=== PATIENT | female | born 1945 | race Caucasian/White ===

== ENCOUNTER 2018-06-13 14:43 | Inpatient (IN) | payer MEDICARE, BC ==
[~2018-06-13] VITALS: Ht 170.2 cm; Wt 46.7 kg
[2018-06-13] MEDS ORDERED: normal saline 1000ML IV soln IVB ONE ×2 (16:30→19:05)
[2018-06-13 17:34] LABS: BASOPHILS # (AUTO) 0.1 X10'3 (0-0.2); BASOPHILS % (AUTO) 0.6 % (0-1); EOSINOPHILS # (AUTO) 0.1 X10'3 (0-0.9); EOSINOPHILS % (AUTO) 1.2 % (0-6); HEMATOCRIT 36.7 % (35.0-45.0); HEMOGLOBIN 12.7 g/dl (12.0-16.0); LYMPHOCYTES # (AUTO) 0.9 X10'3 (1.1-4.8); LYMPHOCYTES % (AUTO) 7.7 % (21-51); MEAN CORPUSCULAR HEMOGLOBIN 34.7 PG (27.0-31.0); MEAN CORPUSCULAR HGB CONC 34.6 % (33.0-36.5); MEAN CORPUSCULAR VOLUME 100.2 FL (78-98); MEAN PLATELET VOLUME 8.9 FL (7.4-10.4); MONOCYTES # (AUTO) 0.9 X10'3 (0-0.9); NEUTROPHILS # (AUTO) 9.6 X10'3 (1.8-7.7); NEUTROPHILS % (AUTO) 82.5 % (42-75); PLATELET COUNT 191 X10'3 (140-440); RED BLOOD COUNT 3.66 X10'6 (4.20-5.60); RED CELL DISTRIBUTION WIDTH 14.4 % (11.5-14.5); WHITE BLOOD COUNT 11.6 X10'3 (4.5-11.0)
[2018-06-13 17:54] LABS: ALANINE AMINOTRANSFERASE 27 U/L (12-78); ALBUMIN 2.5 G/DL (3.4-5.0); ALBUMIN/GLOBULIN RATIO 0.7 (1.1-1.5); ALKALINE PHOSPHATASE 92 IU/L (46-116); ANION GAP 16 (8-16); ASPARTATE AMINO TRANSFERASE 24 U/L (10-37); BILIRUBIN,TOTAL 0.5 MG/DL (0.1-1.0); BLOOD UREA NITROGEN 60 MG/DL (7-18); BUN/CREATININE RATIO 25.9 (6.6-38.0); CALCIUM 8.6 MG/DL (8.5-10.1); CHLORIDE 106 MMOL/L (99-107); CREATININE 2.32 MG/DL (0.40-0.90); GLUCOSE 134 MG/DL (70-104); SODIUM 140 MMOL/L (135-145); TOTAL CARBON DIOXIDE 18.3 MMOL/L (24-32); TOTAL PROTEIN 6.3 G/DL (6.4-8.2); eGFR 21 ML/MIN
[2018-06-13 17:56] LABS: POTASSIUM 2.1 MMOL/L (3.5-5.1)
[2018-06-13] MEDS ORDERED: potass W/LIDOcaine 10mEq/100ml 100 ML IV ONE ×2 (18:00)
[2018-06-13] MEDS: potass W/LIDOcaine 10mEq/100ml 100 ML IV SCH ×3 (18:12→20:23)
[2018-06-13] MEDS ORDERED: NO HOME MEDS (18:17)
[2018-06-13 18:23] LABS: PLATELET ESTIMATE NORMAL; TOTAL CELLS COUNTED 100
[2018-06-13] MEDS: normal saline 1000ml 1,000 ML IV SCH (19:44)
[2018-06-13] MEDS ORDERED: magnesium 4gm in 100ml NS 100 ML IV PRN (19:45)
[2018-06-13] MEDS ORDERED: HYDROcodone/acetaminophen 5mg/325mg tablet PO PRN (19:45)
[2018-06-13] MEDS ORDERED: mag hydrox/Alum hydrox/simeth 30ml oral suspension PO PRN (19:45)
[2018-06-13] MEDS ORDERED: acetaminophen 650mg rectal suppository RC PRN (19:45)
[2018-06-13] MEDS ORDERED: ondansetron/PF 4mg/2ml inj IV PRN (19:45)
[2018-06-13] MEDS ORDERED: magnesium 1gm/100ml D5W IVPB 100 ML IV PRN (19:45)
[2018-06-13] MEDS ORDERED: potassium Cl 40MEQ/NS 500ml 500 ML IV PRN ×2 (19:45)
[2018-06-13] MEDS ORDERED: diphenhydrAMINE 50 mg/ml inj IV PRN (19:45)
[2018-06-13] MEDS ORDERED: metoclopramide 5 mg/ml inj IV PRN (19:45)
[2018-06-13] MEDS ORDERED: morphine 2 MG/ML inj. syringe IV PRN ×2 (19:45)
[2018-06-13] MEDS ORDERED: magnesium hydroxide 30ml (MOM) UD suspension PO PRN (19:45)
[2018-06-13] MEDS ORDERED: acetaminophen 325mg tablet PO PRN ×2 (19:45)
[2018-06-13] MEDS ORDERED: bisacodyl 10mg suppository rectal RC PRN (19:45)
[2018-06-13] MEDS ORDERED: normal saline 500ml IV soln 500 ML IV ONE (19:50)
[2018-06-13] MEDS: docusate sod 100mg capsule PO SCH ×2 (20:00→20:18)
[2018-06-13] MEDS: hydrocortisone sod succ/PF 100mg/2ml inj. IV SCH (20:19)
[2018-06-13] MEDS: heparin, porcine 5000 units/ml vial SQ SCH (20:19)
[2018-06-13 20:45] LABS: HEMOGLOBIN A1C 5.3 % (4.5-6.2)
[2018-06-13 20:51] LABS: MAGNESIUM 2.1 MG/DL (1.5-2.4); PHOSPHORUS 3.5 MG/DL (2.3-4.5)
[2018-06-13] MEDS ORDERED: temazepam 15mg capsule PO PRN (21:00)
[2018-06-13] MEDS: potassium Cl 20 mEq SR tablet PO PRN (21:16)
[2018-06-14] MEDS ORDERED: tetanus & diphtheria toxoid (Td) vaccine 0.5ml IMVAC ONE (03:40)
[2018-06-14] MEDS ORDERED: TETanus/Pertussis (Acell)/Diphther VAC/PF (Tdap-Adult) 0.5ml syringe IMVAC ONE (04:00)
[2018-06-14] MEDS: normal saline 1000ml 1,000 ML IV SCH (06:57)
[2018-06-14 07:09] LABS: BASOPHILS % (AUTO) 0 % (0-1); EOSINOPHILS % (AUTO) 0.1 % (0-6); HEMATOCRIT 35.6 % (35.0-45.0); LYMPHOCYTES % (AUTO) 10.4 % (21-51); MEAN CORPUSCULAR HGB CONC 33.8 % (33.0-36.5); MEAN CORPUSCULAR VOLUME 103.3 FL (78-98); MEAN PLATELET VOLUME 9.1 FL (7.4-10.4); MONOCYTES # (AUTO) 0.5 X10'3 (0-0.9); MONOCYTES % (AUTO) 4.7 % (2-12); NEUTROPHILS # (AUTO) 8.5 X10'3 (1.8-7.7); NEUTROPHILS % (AUTO) 84.8 % (42-75); PLATELET COUNT 180 X10'3 (140-440); RED BLOOD COUNT 3.44 X10'6 (4.20-5.60); RED CELL DISTRIBUTION WIDTH 15.3 % (11.5-14.5); WHITE BLOOD COUNT 10.1 X10'3 (4.5-11.0)
[2018-06-14 07:19] LABS: CLARITY,URINE SLIGHTLY CLOUDY (Clear); COLOR,URINE YELLOW (Yellow); GLUCOSE, URINE NEGATIVE (Neg); KETONES,URINE NEGATIVE (Neg); LEUKOCYTE ESTERASE ,URINE LARGE (Neg); NITRITES, URINE NEGATIVE (Neg); OCCULT BLOOD,URINE LARGE (Neg); PROTEIN,URINE TRACE mg/dl (Neg); UROBILINOGEN,URINE 0.2 E.U/dL (0.2-1.0)
[2018-06-14 07:38] LABS: UA COLLECTION TYPE VOIDED
[2018-06-14 07:38] LABS: ALANINE AMINOTRANSFERASE 27 U/L (12-78); ALBUMIN/GLOBULIN RATIO 0.6 (1.1-1.5); ALKALINE PHOSPHATASE 78 IU/L (46-116); ANION GAP 13 (8-16); ASPARTATE AMINO TRANSFERASE 38 U/L (10-37); BILIRUBIN,TOTAL 0.4 MG/DL (0.1-1.0); BLOOD UREA NITROGEN 48 MG/DL (7-18); BUN/CREATININE RATIO 26.1 (6.6-38.0); CALCIUM 7.3 MG/DL (8.5-10.1); CHLORIDE 116 MMOL/L (99-107); CHOL/HDL RATIO 2.4 (0.00-4.99); CHOLESTEROL 92 MG/DL (0-200); CREATININE 1.84 MG/DL (0.40-0.90); GLUCOSE 96 MG/DL (70-104); HDL CHOLESTEROL 38 MG/DL (35-60); LDL CHOLESTEROL 39 MG/DL (50-100); MAGNESIUM 1.9 MG/DL (1.5-2.4); SODIUM 146 MMOL/L (135-145); TOTAL PROTEIN 5.3 G/DL (6.4-8.2); TRIGLYCERIDES 81 MG/DL (20-135); eGFR 27 ML/MIN
[2018-06-14 07:40] LABS: BACTERIA,URINE FEW /HPF (Neg); FINE GRANULAR CAST 0-3 /LPF (NEGATIVE); MUCUS STRANDS NONE SEEN /LPF (Neg); RBC,URINE NONE SEEN /HPF (0-2); RENAL CELLS, URINE FEW /HPF; SQUAMOUS EPITHELIAL CELL,UR MODERATE /LPF (FEW)
[2018-06-14] MEDS: hydrocortisone sod succ/PF 100mg/2ml inj. IV SCH (07:59)
[2018-06-14] MEDS: pantoprazole 40mg Tablet.DR PO SCH (07:59)
[2018-06-14] MEDS: heparin, porcine 5000 units/ml vial SQ SCH ×2 (07:59→20:40)
[2018-06-14] MEDS: K and/or MAG REPLACEMENT MC SCH (08:00)
[2018-06-14] MEDS: docusate sod 100mg capsule PO SCH ×2 (08:00→20:00)
[2018-06-14 08:04] LABS: POTASSIUM 2.5 MMOL/L (3.5-5.1)
[2018-06-14] MEDS: potassium Cl 20 mEq SR tablet PO PRN ×4 (08:09→22:45)
[2018-06-14 09:15] LABS: TOTAL CELLS COUNTED 100
[2018-06-14 09:23] LABS: ANISOCYTOSIS FEW; PLATELET ESTIMATE NORMAL
[2018-06-14 09:24] LABS: TOXIC GRANULATION 1+
[2018-06-14 10:00] VITALS: BP 110/63
[2018-06-14] MEDS: levoFLOXACIN-Levaquin 500mg/D5 100 ML IV SCH (11:20)
[2018-06-14] MEDS: clindamycin 300mg/D5W 50mL 50 ML IV SCH ×2 (14:01→20:38)
[2018-06-14 17:00] VITALS: BP_SYST 100; BP_SYST 76; BP_SYST 90; BP_DIAS 44; BP_DIAS 46
[2018-06-14 18:00] VITALS: BP 105/45
[2018-06-14 20:00] VITALS: BP_SYST 102; BP_DIAS 51; BP_DIAS 63; BP_DIAS 68
[2018-06-14] MEDS: sodium bicarbonate (8.4%) inj. 100 MEQ in dextrose 5%-water 1,000 ML IV SCH (21:47)
[2018-06-14 22:00] VITALS: BP 102/51
[2018-06-15] MEDS: clindamycin 300mg/D5W 50mL 50 ML IV SCH ×4 (01:54→21:25)
[2018-06-15] MEDS: potassium Cl 20 mEq SR tablet PO PRN ×4 (02:51→18:54)
[2018-06-15 06:00] VITALS: BP 97/54
[2018-06-15] MEDS: pantoprazole 40mg Tablet.DR PO SCH (07:33)
[2018-06-15] MEDS: heparin, porcine 5000 units/ml vial SQ SCH ×2 (07:34→21:25)
[2018-06-15] MEDS: hydrocortisone sod succ/PF 100mg/2ml inj. IV SCH (07:34)
[2018-06-15 08:00] VITALS: BP_SYST 93; BP_SYST 95; BP_SYST 99; BP_DIAS 52; BP_DIAS 55; BP_DIAS 60
[2018-06-15] MEDS: docusate sod 100mg capsule PO SCH ×2 (08:00→20:00)
[2018-06-15] MEDS: K and/or MAG REPLACEMENT MC SCH (08:00)
[2018-06-15] MEDS: levoFLOXACIN-Levaquin 500mg/D5 100 ML IV SCH (08:39)
[2018-06-15 09:13] LABS: BASOPHILS % (AUTO) 0.2 % (0-1); EOSINOPHILS # (AUTO) 0.2 X10'3 (0-0.9); EOSINOPHILS % (AUTO) 1.8 % (0-6); HEMATOCRIT 33.2 % (35.0-45.0); HEMOGLOBIN 11.3 g/dl (12.0-16.0); LYMPHOCYTES # (AUTO) 1.3 X10'3 (1.1-4.8); LYMPHOCYTES % (AUTO) 14.4 % (21-51); MEAN CORPUSCULAR HEMOGLOBIN 34.9 PG (27.0-31.0); MEAN CORPUSCULAR HGB CONC 33.9 % (33.0-36.5); MEAN CORPUSCULAR VOLUME 102.9 FL (78-98); MEAN PLATELET VOLUME 9.1 FL (7.4-10.4); MONOCYTES # (AUTO) 0.5 X10'3 (0-0.9); MONOCYTES % (AUTO) 6.1 % (2-12); NEUTROPHILS # (AUTO) 6.9 X10'3 (1.8-7.7); NEUTROPHILS % (AUTO) 77.5 % (42-75); PLATELET COUNT 170 X10'3 (140-440); RED BLOOD COUNT 3.22 X10'6 (4.20-5.60); RED CELL DISTRIBUTION WIDTH 14.7 % (11.5-14.5); WHITE BLOOD COUNT 8.9 X10'3 (4.5-11.0)
[2018-06-15 09:31] LABS: ALANINE AMINOTRANSFERASE 25 U/L (12-78); ALBUMIN 1.8 G/DL (3.4-5.0); ALBUMIN/GLOBULIN RATIO 0.6 (1.1-1.5); ALKALINE PHOSPHATASE 81 IU/L (46-116); ANION GAP 13 (8-16); ASPARTATE AMINO TRANSFERASE 43 U/L (10-37); BILIRUBIN,TOTAL 0.4 MG/DL (0.1-1.0); BLOOD UREA NITROGEN 32 MG/DL (7-18); BUN/CREATININE RATIO 24.2 (6.6-38.0); CALCIUM 7.2 MG/DL (8.5-10.1); CHLORIDE 114 MMOL/L (99-107); CREATININE 1.32 MG/DL (0.40-0.90); GLUCOSE 168 MG/DL (70-104); MAGNESIUM 1.3 MG/DL (1.5-2.4); POTASSIUM 3.3 MMOL/L (3.5-5.1); SODIUM 144 MMOL/L (135-145); TOTAL CARBON DIOXIDE 17.4 MMOL/L (24-32); eGFR 40 ML/MIN
[2018-06-15 10:00] VITALS: BP 99/52
[2018-06-15] MEDS: sodium bicarbonate (8.4%) inj. 100 MEQ in dextrose 5%-water 1,000 ML IV SCH (13:32)
[2018-06-15] MEDS: magnesium Cl slow-release 64mg tablet PO PRN ×2 (14:02→22:35)
[2018-06-15 18:00] VITALS: BP 100/60
[2018-06-15 20:00] VITALS: BP_SYST 111; BP_SYST 113; BP_DIAS 61; BP_DIAS 65
[2018-06-15 22:00] VITALS: BP 94/58
[2018-06-16] MEDS: HYDROcodone/acetaminophen 10/325mg tab PO PRN (02:12)
[2018-06-16] MEDS: clindamycin 300mg/D5W 50mL 50 ML IV SCH ×4 (04:13→20:10)
[2018-06-16] MEDS: sodium bicarbonate (8.4%) inj. 100 MEQ in dextrose 5%-water 1,000 ML IV SCH ×3 (04:14→18:00)
[2018-06-16] MEDS: diphenhydrAMINE 25mg capsule PO PRN ×2 (04:20→20:22)
[2018-06-16 06:00] VITALS: BP 104/63
[2018-06-16 06:59] LABS: BASOPHILS # (AUTO) 0.2 X10'3 (0-0.2); BASOPHILS % (AUTO) 1.7 % (0-1); EOSINOPHILS # (AUTO) 0.1 X10'3 (0-0.9); EOSINOPHILS % (AUTO) 0.8 % (0-6); HEMATOCRIT 32.4 % (35.0-45.0); LYMPHOCYTES # (AUTO) 1.9 X10'3 (1.1-4.8); LYMPHOCYTES % (AUTO) 18.2 % (21-51); MEAN CORPUSCULAR HEMOGLOBIN 34.7 PG (27.0-31.0); MEAN CORPUSCULAR HGB CONC 33.8 % (33.0-36.5); MEAN CORPUSCULAR VOLUME 102.6 FL (78-98); MEAN PLATELET VOLUME 9.1 FL (7.4-10.4); MONOCYTES # (AUTO) 0.8 X10'3 (0-0.9); MONOCYTES % (AUTO) 7.5 % (2-12); NEUTROPHILS # (AUTO) 7.6 X10'3 (1.8-7.7); NEUTROPHILS % (AUTO) 71.8 % (42-75); PLATELET COUNT 167 X10'3 (140-440); RED BLOOD COUNT 3.16 X10'6 (4.20-5.60); RED CELL DISTRIBUTION WIDTH 14.7 % (11.5-14.5); WHITE BLOOD COUNT 10.6 X10'3 (4.5-11.0)
[2018-06-16 07:24] LABS: ALANINE AMINOTRANSFERASE 24 U/L (12-78); ALBUMIN 1.7 G/DL (3.4-5.0); ALBUMIN/GLOBULIN RATIO 0.5 (1.1-1.5); ALKALINE PHOSPHATASE 69 IU/L (46-116); ANION GAP 8 (8-16); ASPARTATE AMINO TRANSFERASE 33 U/L (10-37); BILIRUBIN,TOTAL 0.3 MG/DL (0.1-1.0); BLOOD UREA NITROGEN 22 MG/DL (7-18); BUN/CREATININE RATIO 20.4 (6.6-38.0); CALCIUM 7.4 MG/DL (8.5-10.1); CHLORIDE 113 MMOL/L (99-107); CREATININE 1.08 MG/DL (0.40-0.90); GLUCOSE 81 MG/DL (70-104); MAGNESIUM 1.4 MG/DL (1.5-2.4); POTASSIUM 3.1 MMOL/L (3.5-5.1); SODIUM 144 MMOL/L (135-145); TOTAL CARBON DIOXIDE 22.6 MMOL/L (24-32); eGFR 50 ML/MIN
[2018-06-16] MEDS: hydrocortisone sod succ/PF 100mg/2ml inj. IV SCH (07:39)
[2018-06-16] MEDS: lactobacillus rhamnosus 10,000 MMU CELLS/CAPSULE PO SCH ×2 (07:39→20:10)
[2018-06-16] MEDS: pantoprazole 40mg Tablet.DR PO SCH (07:39)
[2018-06-16] MEDS: magnesium Cl slow-release 64mg tablet PO PRN (07:39)
[2018-06-16] MEDS: potassium Cl 20 mEq SR tablet PO PRN ×3 (07:39→21:34)
[2018-06-16] MEDS: heparin, porcine 5000 units/ml vial SQ SCH ×2 (07:40→20:11)
[2018-06-16 08:00] VITALS: BP_SYST 100; BP_SYST 102; BP_SYST 104; BP_DIAS 52; BP_DIAS 62
[2018-06-16] MEDS: docusate sod 100mg capsule PO SCH ×2 (08:00→20:10)
[2018-06-16] MEDS: K and/or MAG REPLACEMENT MC SCH (08:00)
[2018-06-16 10:00] VITALS: BP 94/57
[2018-06-16] MEDS: linezolid 600mg tablet PO SCH ×2 (11:09→20:10)
[2018-06-16] MEDS: levoFLOXACIN 250mg tablet PO SCH (11:09)
[2018-06-16 18:00] VITALS: BP 107/65
[2018-06-16 20:00] VITALS: BP_SYST 100; BP_SYST 105; BP_SYST 115; BP_DIAS 47; BP_DIAS 63; BP_DIAS 67
[2018-06-16 22:31] VITALS: BP 115/67
[2018-06-17] MEDS: clindamycin 300mg/D5W 50mL 50 ML IV SCH ×4 (02:06→19:36)
[2018-06-17] MEDS: sodium bicarbonate (8.4%) inj. 100 MEQ in dextrose 5%-water 1,000 ML IV SCH (02:06)
[2018-06-17 05:00] VITALS: BP 119/69
[2018-06-17 06:59] LABS: BASOPHILS % (AUTO) 0.4 % (0-1); EOSINOPHILS # (AUTO) 0.1 X10'3 (0-0.9); EOSINOPHILS % (AUTO) 1.1 % (0-6); HEMATOCRIT 31.5 % (35.0-45.0); HEMOGLOBIN 10.6 g/dl (12.0-16.0); LYMPHOCYTES # (AUTO) 1.7 X10'3 (1.1-4.8); LYMPHOCYTES % (AUTO) 20.1 % (21-51); MEAN CORPUSCULAR HEMOGLOBIN 34.2 PG (27.0-31.0); MEAN CORPUSCULAR HGB CONC 33.7 % (33.0-36.5); MEAN CORPUSCULAR VOLUME 101.4 FL (78-98); MEAN PLATELET VOLUME 8.2 FL (7.4-10.4); MONOCYTES # (AUTO) 0.6 X10'3 (0-0.9); MONOCYTES % (AUTO) 7.6 % (2-12); NEUTROPHILS % (AUTO) 70.8 % (42-75); PLATELET COUNT 170 X10'3 (140-440); RED BLOOD COUNT 3.11 X10'6 (4.20-5.60); RED CELL DISTRIBUTION WIDTH 14.9 % (11.5-14.5); WHITE BLOOD COUNT 8.5 X10'3 (4.5-11.0)
[2018-06-17] MEDS: HYDROcodone/acetaminophen 10/325mg tab PO PRN (07:17)
[2018-06-17 07:22] LABS: ALANINE AMINOTRANSFERASE 23 U/L (12-78); ALBUMIN 1.6 G/DL (3.4-5.0); ALBUMIN/GLOBULIN RATIO 0.5 (1.1-1.5); ALKALINE PHOSPHATASE 71 IU/L (46-116); ANION GAP 7 (8-16); ASPARTATE AMINO TRANSFERASE 29 U/L (10-37); BILIRUBIN,TOTAL 0.2 MG/DL (0.1-1.0); BLOOD UREA NITROGEN 15 MG/DL (7-18); CALCIUM 7.1 MG/DL (8.5-10.1); CHLORIDE 111 MMOL/L (99-107); GLUCOSE 94 MG/DL (70-104); MAGNESIUM 1.2 MG/DL (1.5-2.4); POTASSIUM 3.3 MMOL/L (3.5-5.1); SODIUM 143 MMOL/L (135-145); TOTAL CARBON DIOXIDE 24.8 MMOL/L (24-32); eGFR 55 ML/MIN
[2018-06-17] MEDS: docusate sod 100mg capsule PO SCH ×2 (07:54→19:37)
[2018-06-17] MEDS: hydrocortisone sod succ/PF 100mg/2ml inj. IV SCH (07:54)
[2018-06-17] MEDS: heparin, porcine 5000 units/ml vial SQ SCH ×2 (07:54→19:37)
[2018-06-17] MEDS: lactobacillus rhamnosus 10,000 MMU CELLS/CAPSULE PO SCH ×2 (07:54→19:36)
[2018-06-17] MEDS: pantoprazole 40mg Tablet.DR PO SCH (07:54)
[2018-06-17] MEDS: linezolid 600mg tablet PO SCH ×2 (07:56→19:36)
[2018-06-17 08:00] VITALS: BP_SYST 106; BP_SYST 108; BP_SYST 93; BP_DIAS 57; BP_DIAS 62; BP_DIAS 67
[2018-06-17] MEDS: K and/or MAG REPLACEMENT MC SCH (08:50)
[2018-06-17] MEDS: levoFLOXACIN 250mg tablet PO SCH (11:56)
[2018-06-17] MEDS: diphenhydrAMINE 25mg capsule PO PRN ×2 (11:58→19:38)
[2018-06-17 17:00] VITALS: BP 102/62
[2018-06-17] MEDS: potassium Cl 20 mEq SR tablet PO PRN (19:36)
[2018-06-17 20:00] VITALS: BP_SYST 115; BP_SYST 120; BP_SYST 127; BP_DIAS 66; BP_DIAS 70; BP_DIAS 71
[2018-06-17 22:00] VITALS: BP 111/67
[2018-06-18] MEDS: potassium Cl 20 mEq SR tablet PO PRN ×3 (01:42→14:30)
[2018-06-18] MEDS: clindamycin 300mg/D5W 50mL 50 ML IV SCH ×3 (01:42→14:18)
[2018-06-18 05:00] VITALS: BP 110/70
[2018-06-18 05:36] LABS: BASOPHILS % (AUTO) 0.3 % (0-1); EOSINOPHILS # (AUTO) 0.1 X10'3 (0-0.9); EOSINOPHILS % (AUTO) 1.2 % (0-6); HEMATOCRIT 31.1 % (35.0-45.0); HEMOGLOBIN 10.6 g/dl (12.0-16.0); LYMPHOCYTES # (AUTO) 1.6 X10'3 (1.1-4.8); LYMPHOCYTES % (AUTO) 19.7 % (21-51); MEAN CORPUSCULAR HEMOGLOBIN 34.8 PG (27.0-31.0); MEAN CORPUSCULAR HGB CONC 34.3 % (33.0-36.5); MEAN CORPUSCULAR VOLUME 101.7 FL (78-98); MEAN PLATELET VOLUME 8.3 FL (7.4-10.4); MONOCYTES # (AUTO) 0.7 X10'3 (0-0.9); MONOCYTES % (AUTO) 9.1 % (2-12); NEUTROPHILS # (AUTO) 5.6 X10'3 (1.8-7.7); NEUTROPHILS % (AUTO) 69.7 % (42-75); PLATELET COUNT 177 X10'3 (140-440); RED BLOOD COUNT 3.06 X10'6 (4.20-5.60); RED CELL DISTRIBUTION WIDTH 14.7 % (11.5-14.5)
[2018-06-18 06:32] LABS: ALANINE AMINOTRANSFERASE 11 U/L (12-78); ALBUMIN 1.5 G/DL (3.4-5.0); ALBUMIN/GLOBULIN RATIO 0.4 (1.1-1.5); ALKALINE PHOSPHATASE 62 IU/L (46-116); ANION GAP 10 (8-16); ASPARTATE AMINO TRANSFERASE 21 U/L (10-37); BILIRUBIN,TOTAL 0.3 MG/DL (0.1-1.0); BLOOD UREA NITROGEN 11 MG/DL (7-18); BUN/CREATININE RATIO 11.8 (6.6-38.0); CALCIUM 7.3 MG/DL (8.5-10.1); CHLORIDE 112 MMOL/L (99-107); CREATININE 0.93 MG/DL (0.40-0.90); GLUCOSE 76 MG/DL (70-104); MAGNESIUM 1.1 MG/DL (1.5-2.4); SODIUM 147 MMOL/L (135-145); TOTAL CARBON DIOXIDE 24.6 MMOL/L (24-32); eGFR 59 ML/MIN
[2018-06-18 07:19] LABS: POTASSIUM 2.9 MMOL/L (3.5-5.1)
[2018-06-18] MEDS: docusate sod 100mg capsule PO SCH (07:59)
[2018-06-18] MEDS: lactobacillus rhamnosus 10,000 MMU CELLS/CAPSULE PO SCH (07:59)
[2018-06-18] MEDS: pantoprazole 40mg Tablet.DR PO SCH (07:59)
[2018-06-18] MEDS: heparin, porcine 5000 units/ml vial SQ SCH (08:00)
[2018-06-18] MEDS: hydrocortisone sod succ/PF 100mg/2ml inj. IV SCH (08:00)
[2018-06-18] MEDS: linezolid 600mg tablet PO SCH (08:00)
[2018-06-18] MEDS ORDERED: magnesium Cl slow-release 64mg tablet PO PRN (08:05)
[2018-06-18] MEDS: K and/or MAG REPLACEMENT MC SCH (08:21)
[2018-06-18] MEDS ORDERED: NS IV ONE (09:00)
[2018-06-18] MEDS ORDERED: MAGNESIUM IV ONE (09:00)
[2018-06-18 10:00] VITALS: BP 105/67
[2018-06-18] MEDS: levoFLOXACIN 250mg tablet PO SCH (11:41)
[2018-06-18 14:54] LABS: MAGNESIUM 1.8 MG/DL (1.5-2.4); POTASSIUM 3.4 MMOL/L (3.5-5.1)
[2018-06-20 05:23] LABS: ALDOSTERONE <1.0 ng/dL (0.0-30.0)
[2018-06-22 15:19] LABS: RENIN, PLASMA 2.524 ng/mL/hr (0.167-5.380)
== END 2018-06-18 15:40 | DRG 871 ==
LOC: ER 14:44 → ED HOLD 19:44 → ORTHO 4S 06-14 10:00
PROVIDERS: ADMIT Family Medicine; ATTEND Family Medicine
DX: A41.9 Sepsis, unspecified organism (principal); N17.0 Acute kidney failure with tubular necrosis; N39.0 Urinary tract infection, site not specified; E87.2 Acidosis; S00.03XA Contusion of scalp, initial encounter; W18.30XA Fall on same level, unspecified, initial encounter; E87.6 Hypokalemia; B96.5 Pseudomonas (aeruginosa) (mallei) (pseudomallei) as the cause of diseases classified elsewhere; E83.42 Hypomagnesemia; E86.0 Dehydration; S00.83XA Contusion of other part of head, initial encounter; E86.1 Hypovolemia; F17.200 Nicotine dependence, unspecified, uncomplicated; G62.9 Polyneuropathy, unspecified; B95.62 Methicillin resistant Staphylococcus aureus infection as the cause of diseases classified elsewhere; G89.4 Chronic pain syndrome; L53.9 Erythematous condition, unspecified; I10 Essential (primary) hypertension; I48.0 Paroxysmal atrial fibrillation; J44.9 Chronic obstructive pulmonary disease, unspecified; K04.7 Periapical abscess without sinus; L30.9 Dermatitis, unspecified; R55 Syncope and collapse; Z88.0 Allergy status to penicillin; Y93.89 Activity, other specified; Y92.481 Parking lot as the place of occurrence of the external cause; Y99.8 Other external cause status; Z71.6 Tobacco abuse counseling
CPT/HCPCS: 36415; 70450; 70486; 70551; 71045; 72141; 80053; 80061; 81001; 82088; 82530; 82533; 82570; 82948; 83036; 83735; 83880; 84100; 84132; 84244; 84443; 84484; 85025; 87070; 87077; 87088; 87186; 90715; 93005; 93306; 93880; 96360; 97110; 97116; 97162; 97530; 99285; A6213; A6250; A6258; A9270; J1200; J1644; J1720; J1956; J3475; J3480; J7030; Q0163; X5958

== ENCOUNTER 2023-05-04 00:40 | Emergency (ER) | payer MEDICARE ==
[~2023-05-04] VITALS: Ht 160 cm; Wt 52.3 kg
[~2023-05-04 00:40] MED LIST: ASCO-134 PO; ASPI-1265 PO; BUDE10.7 PO; BUPR-297 PO; ESCI-8 PO; FERR-39 PO; GABA800T PO; LATA2.5D14 EACHEYE; MAGN250T11 PO; MELA10TA2 PO; METO-395 PO; MULT-227 PO; ONDA-103 PO; SACU1TAB PO; THIA100T70 PO; ZALE5CAP2 PO
[2023-05-04] MEDS ORDERED: normal saline 1000ML IV soln IVB ONE (01:05)
[2023-05-04] MEDS ORDERED: thiamine 100mg/ml 2ml inj. IV ONE (01:05)
[2023-05-04] MEDS ORDERED: dextrose 50%-water 50ml dispensing syringe IV ONE (01:44)
[2023-05-04 01:48] LABS: BASOPHILS % (AUTO) 0.6 % (0-1); EOSINOPHILS # (AUTO) 0.1 X10'3 (0-0.9); EOSINOPHILS % (AUTO) 2.2 % (0-6); HEMOGLOBIN 12.8 g/dl (12.0-16.0); LYMPHOCYTES # (AUTO) 2.1 X10'3 (1.1-4.8); MEAN CORPUSCULAR HEMOGLOBIN 34.4 PG (27.0-31.0); MEAN CORPUSCULAR HGB CONC 32.8 g/dL (33.0-36.5); MEAN CORPUSCULAR VOLUME 104.9 FL (78-98); MEAN PLATELET VOLUME 7.6 FL (7.4-10.4); MONOCYTES # (AUTO) 0.6 X10'3 (0-0.9); MONOCYTES % (AUTO) 11.5 % (2-12); NEUTROPHILS # (AUTO) 2.6 X10'3 (1.8-7.7); NEUTROPHILS % (AUTO) 46.7 % (42-75); PLATELET COUNT 213 X10'3 (140-440); RED BLOOD COUNT 3.72 X10'6 (4.20-5.60); RED CELL DISTRIBUTION WIDTH 15.1 % (11.5-14.5); WHITE BLOOD COUNT 5.5 X10'3 (4.5-11.0)
[2023-05-04 02:01] LABS: ALANINE AMINOTRANSFERASE 54 U/L (12-78); ALBUMIN 2.9 G/DL (3.4-5.0); ALBUMIN/GLOBULIN RATIO 0.7 (1.1-1.5); ALKALINE PHOSPHATASE 140 IU/L (46-116); ANION GAP 12 (8-16); ASPARTATE AMINO TRANSFERASE 91 U/L (10-37); BILIRUBIN,TOTAL 0.3 MG/DL (0.1-1.0); BLOOD UREA NITROGEN 8 MG/DL (7-18); BUN/CREATININE RATIO 8.2 (10.0-20.0); CALCIUM 8.3 MG/DL (8.5-10.1); CHLORIDE 98 MMOL/L (99-107); CREATININE 0.97 MG/DL (0.40-0.90); GLUCOSE 68 MG/DL (70-104); POTASSIUM 3.8 MMOL/L (3.5-5.1); SODIUM 137 MMOL/L (135-145); TOTAL CARBON DIOXIDE 27.5 MMOL/L (24-32); TOTAL PROTEIN 6.8 G/DL (6.4-8.2); eGFR 56 ML/MIN
[2023-05-04 02:04] LABS: ETHANOL 372 MG/DL (<10)
[2023-05-04 02:29] VITALS: TEMP 98
--- NOTE | 2023-05-04 03:23 | NUR ---
applied barrier cream to bpatients coccyx due to excoriation appearance
[2023-05-04 05:14] VITALS: BP 104/75; PULSE 70; RESP 16; O2SAT 95
--- NOTE | 2023-05-04 05:50 | NUR ---
patient up to use restroon jay emt is assisting patient
--- NOTE | 2023-05-04 07:31 | NUR ---
patient had two IVs placed and pulled both out. MD to see patient, she is alert and oriented and MD stated she is ok to be discharged.
== END 2023-05-04 08:01 | disposition home or self-care (01) ==
LOC: ER 00:41
DX: S51.012A Laceration without foreign body of left elbow, initial encounter (principal); S09.90XA Unspecified injury of head, initial encounter; F10.920 Alcohol use, unspecified with intoxication, uncomplicated; Y90.9 Presence of alcohol in blood, level not specified; R41.82 Altered mental status, unspecified; W18.39XA Other fall on same level, initial encounter; Y93.89 Activity, other specified; Y92.89 Other specified places as the place of occurrence of the external cause; Y99.8 Other external cause status
CPT/HCPCS: 36415; 70450; 72125; 80053; 80320; 82948; 85025; 93005; 96361; 96374; 99285; J3411; J3490; J7030; A6250; A6449

== ENCOUNTER 2023-08-24 20:35 | Inpatient (IN) | payer MEDICARE ==
[~2023-08-24] VITALS: Ht 160 cm; Wt 51.0 kg
[2023-08-24] MEDS ORDERED: LIDOcaine 2% 10ml TOPICAL JELLY (Urojet) TP ONE (21:05)
[2023-08-24] MEDS ORDERED: cefepime 2g/NS 100ml ADVANTAGE 100 ML IV ONE (21:05)
[2023-08-24] MEDS ORDERED: ringers solution, lacted 1,000 ML IV ONE (21:05)
[2023-08-24] MEDS ORDERED: vancomycin/NS 1 GM ADD-VANTAGE 250 ML IV ONE ×2 (21:05→22:20)
[2023-08-24] MEDS ORDERED: normal saline 1000ml 1,000 ML IV ONE (21:05)
[2023-08-24] MEDS ORDERED: LidoCAINE 2% Topical Jelly 11mL syringe TOP ONE (21:20)
[2023-08-24 21:34] LABS: BASOPHILS # (AUTO) 0.1 X10'3 (0-0.2); BASOPHILS % (AUTO) 0.5 % (0-1); EOSINOPHILS % (AUTO) 0 % (0-6); HEMATOCRIT 25.7 % (35.0-45.0); HEMOGLOBIN 8.5 g/dl (12.0-16.0); LYMPHOCYTES # (AUTO) 0.4 X10'3 (1.1-4.8); MEAN CORPUSCULAR HEMOGLOBIN 33.6 PG (27.0-31.0); MEAN CORPUSCULAR HGB CONC 33.1 g/dL (33.0-36.5); MEAN CORPUSCULAR VOLUME 101.3 FL (78-98); MEAN PLATELET VOLUME 8.7 FL (7.4-10.4); MONOCYTES # (AUTO) 1.1 X10'3 (0-0.9); MONOCYTES % (AUTO) 5.4 % (2-12); NEUTROPHILS % (AUTO) 92.1 % (42-75); PLATELET COUNT 275 X10'3 (140-440); RED BLOOD COUNT 2.54 X10'6 (4.20-5.60); RED CELL DISTRIBUTION WIDTH 14.1 % (11.5-14.5); WHITE BLOOD COUNT 20.6 X10'3 (4.5-11.0)
[2023-08-24 21:51] LABS: ALANINE AMINOTRANSFERASE 19 U/L (12-78); ALBUMIN 1.3 G/DL (3.4-5.0); ALBUMIN/GLOBULIN RATIO 0.3 (1.1-1.5); ALKALINE PHOSPHATASE 101 IU/L (46-116); ANION GAP 14 (8-16); ASPARTATE AMINO TRANSFERASE 26 U/L (10-37); BILIRUBIN,TOTAL 0.5 MG/DL (0.1-1.0); BLOOD UREA NITROGEN 109 MG/DL (7-18); BUN/CREATININE RATIO 31.4 (10.0-20.0); CALCIUM 7.7 MG/DL (8.5-10.1); CHLORIDE 100 MMOL/L (99-107); CREATININE 3.47 MG/DL (0.40-0.90); GLUCOSE 109 MG/DL (70-104); SODIUM 136 MMOL/L (135-145); TOTAL CARBON DIOXIDE 21.7 MMOL/L (24-32); eCRCL 10 ML/MIN; eGFR 13 ML/MIN
[2023-08-24 21:57] LABS: POTASSIUM 2.8 MMOL/L (3.5-5.1)
[2023-08-24 22:17] LABS: BILIRUBIN,URINE MODERATE (Neg); CLARITY,URINE SLIGHTLY CLOUDY (Clear); COLOR,URINE YELLOW (Yellow); GLUCOSE, URINE NEGATIVE (Neg); KETONES,URINE NEGATIVE (Neg); LEUKOCYTE ESTERASE ,URINE NEGATIVE (Neg); OCCULT BLOOD,URINE TRACE-INTACT (Neg); PH,URINE 5.5 (4.8-8.0); PROTEIN,URINE 30 mg/dl (Neg); UROBILINOGEN,URINE 0.2 E.U/dL (0.2-1.0)
[2023-08-24] MEDS ORDERED: piperacillin/tazo 3.375gm/50ml 50 ML IV ONE (22:20)
[2023-08-24] MEDS ORDERED: normal saline 1000ML IV soln IVB ONE ×2 (22:20)
[2023-08-24] MEDS ORDERED: cefepime 1GM/NS ADD-VANTAGE 100 ML IV ONE ×2 (22:30→23:00)
[2023-08-24] MEDS ORDERED: magnesium 2GM in 50ml NS 50 ML IV ONE (22:30)
[2023-08-24 22:31] LABS: NITRITES, URINE NEGATIVE (Neg); UA COLLECTION TYPE FOLEY CATH
[2023-08-24 22:34] LABS: BACTERIA,URINE 3+ /HPF (Neg); MUCUS STRANDS FEW /LPF (Neg); RENAL CELLS, URINE FEW /HPF; SQUAMOUS EPITHELIAL CELL,UR FEW /LPF (FEW)
[2023-08-24 22:35] LABS: AMORPHOUS URATES 1+; FINE GRANULAR CAST 0-3 /LPF (NEGATIVE)
[2023-08-24] MEDS: potassium Cl 40MEQ/1/2NS 520ml 520 ML IV SCH (23:40)
[2023-08-25] MEDS ORDERED: mag hydrox/Alum hydrox/simeth 30ml oral suspension PO PRN (02:35)
[2023-08-25] MEDS ORDERED: magnesium hydroxide 30ml (MOM) UD suspension PO PRN (02:35)
[2023-08-25] MEDS ORDERED: magnesium 2GM in 50ml NS 50 ML IV PRN (02:35)
[2023-08-25] MEDS ORDERED: thiamine 100mg/ml 2ml inj. IV ONE (02:40)
[2023-08-25 02:48] LABS: TOTAL CELLS COUNTED 100
[2023-08-25 02:49] LABS: PLATELET ESTIMATE NORMAL
[2023-08-25] MEDS: normal saline 1000ml 1,000 ML IV SCH ×3 (02:49→21:42)
[2023-08-25] MEDS: potassium Cl 40MEQ/1/2NS 520ml 520 ML IV SCH (04:28)
[2023-08-25 07:15] VITALS: BP 102/44; PULSE 51; RESP 16; TEMP 98.2; O2SAT 95
[2023-08-25 07:44] LABS: MAGNESIUM 1.7 MG/DL (1.5-2.4)
[2023-08-25 08:00] VITALS: RESP 16; O2SAT 95
[2023-08-25] MEDS: K and/or MAG REPLACEMENT MC SCH ×2 (08:00→19:47)
[2023-08-25] MEDS: docusate sod 100mg capsule PO SCH ×2 (08:00→18:56)
[2023-08-25] MEDS ORDERED: haloperidol 5mg tablet PO PRN (08:20)
[2023-08-25] MEDS ORDERED: LORazepam 2 mg/ml vial IV PRN (08:20)
[2023-08-25] MEDS ORDERED: haloperidol lactate 5mg/ml inj IM PRN (08:20)
[2023-08-25 09:27] LABS: EOSINOPHILS % (AUTO) 0.1 % (0-6); HEMOGLOBIN 8.5 g/dl (12.0-16.0); MONOCYTES # (AUTO) 0.4 X10'3 (0-0.9); MONOCYTES % (AUTO) 2.4 % (2-12); NEUTROPHILS # (AUTO) 16.1 X10'3 (1.8-7.7)
[2023-08-25 09:29] LABS: BASOPHILS % (AUTO) 0.2 % (0-1); HEMATOCRIT 26.1 % (35.0-45.0); LYMPHOCYTES # (AUTO) 0.5 X10'3 (1.1-4.8); LYMPHOCYTES % (AUTO) 2.8 % (21-51); MEAN CORPUSCULAR HEMOGLOBIN 33.6 PG (27.0-31.0); MEAN CORPUSCULAR HGB CONC 32.6 g/dL (33.0-36.5); MEAN CORPUSCULAR VOLUME 103.1 FL (78-98); MEAN PLATELET VOLUME 8.7 FL (7.4-10.4); NEUTROPHILS % (AUTO) 94.5 % (42-75); PLATELET COUNT 246 X10'3 (140-440); RED BLOOD COUNT 2.54 X10'6 (4.20-5.60); RED CELL DISTRIBUTION WIDTH 13.9 % (11.5-14.5)
[2023-08-25 09:42] LABS: ALANINE AMINOTRANSFERASE 26 U/L (12-78); ALBUMIN 1.1 G/DL (3.4-5.0); ALBUMIN/GLOBULIN RATIO 0.2 (1.1-1.5); ALKALINE PHOSPHATASE 88 IU/L (46-116); ANION GAP 13 (8-16); ASPARTATE AMINO TRANSFERASE 36 U/L (10-37); BILIRUBIN,TOTAL 0.4 MG/DL (0.1-1.0); BLOOD UREA NITROGEN 92 MG/DL (7-18); BUN/CREATININE RATIO 41.4 (10.0-20.0); CALCIUM 8.1 MG/DL (8.5-10.1); CHLORIDE 106 MMOL/L (99-107); CREATININE 2.22 MG/DL (0.40-0.90); GLUCOSE 90 MG/DL (70-104); POTASSIUM 3.6 MMOL/L (3.5-5.1); SODIUM 139 MMOL/L (135-145); TOTAL PROTEIN 5.6 G/DL (6.4-8.2); eCRCL 16 ML/MIN; eGFR 21 ML/MIN
[2023-08-25 10:00] VITALS: BP 104/46; PULSE 87; RESP 17; TEMP 97; O2SAT 94
[2023-08-25] MEDS ORDERED: HYDROmorphone inj. 0.5 MG/0.5 ML DISP.SYRIN IV PRN (10:25)
[2023-08-25] MEDS: heparin, porcine 5000 units/ml vial SQ SCH ×2 (11:12→20:21)
[2023-08-25] MEDS: HYDROmorphone inj. 0.5 MG/0.5 ML DISP.SYRIN IV PRN (12:16)
[2023-08-25 18:00] VITALS: BP 103/48; PULSE 87; RESP 11; TEMP 97.4; O2SAT 96
[2023-08-25] MEDS ORDERED: vancomycin/NS 1 GM ADD-VANTAGE 250 ML IV PRN (19:05)
[2023-08-25] MEDS: cefepime 1GM/NS ADD-VANTAGE 100 ML IV SCH (20:22)
[2023-08-25] MEDS ORDERED: vancomycin/NS 1 GM ADD-VANTAGE 250 ML IV ONE (20:40)
[2023-08-25 22:00] VITALS: BP 105/54; PULSE 78; RESP 16; TEMP 97.7; O2SAT 99
[2023-08-25 22:06] LABS: OCCULT BLOOD STOOL POSITIVE (Neg)
[2023-08-25] MEDS ORDERED: cefepime 1GM/NS ADD-VANTAGE 100 ML IV ONE (23:00)
[2023-08-26] MEDS ORDERED: VANCOMYCIN LEVEL IV SCH (03:00)
[2023-08-26 05:43] LABS: INR 1.1 INR
[2023-08-26 05:54] LABS: ALANINE AMINOTRANSFERASE 23 U/L (12-78); ALBUMIN 1.1 G/DL (3.4-5.0); ALBUMIN/GLOBULIN RATIO 0.3 (1.1-1.5); ALKALINE PHOSPHATASE 92 IU/L (46-116); ANION GAP 11 (8-16); ASPARTATE AMINO TRANSFERASE 30 U/L (10-37); BILIRUBIN,TOTAL 0.3 MG/DL (0.1-1.0); BLOOD UREA NITROGEN 70 MG/DL (7-18); BUN/CREATININE RATIO 50.7 (10.0-20.0); CALCIUM 8.3 MG/DL (8.5-10.1); CHLORIDE 114 MMOL/L (99-107); CREATININE 1.38 MG/DL (0.40-0.90); GLUCOSE 105 MG/DL (70-104); LIPASE 66 U/L (16-77); MAGNESIUM 1.7 MG/DL (1.5-2.4); PHOSPHORUS 1.4 MG/DL (2.3-4.5); SODIUM 147 MMOL/L (135-145); TOTAL CARBON DIOXIDE 22.5 MMOL/L (24-32); TOTAL PROTEIN 5.5 G/DL (6.4-8.2); eCRCL 26 ML/MIN; eGFR 37 ML/MIN
[2023-08-26 06:00] VITALS: BP 91/54; PULSE 105; RESP 15; TEMP 98.1; O2SAT 94
[2023-08-26 06:00] LABS: POTASSIUM 2.3 MMOL/L (3.5-5.1)
[2023-08-26 06:07] LABS: BASOPHILS % (AUTO) 0.1 % (0-1); EOSINOPHILS % (AUTO) 0.1 % (0-6); HEMATOCRIT 23.5 % (35.0-45.0); HEMOGLOBIN 7.7 g/dl (12.0-16.0); LYMPHOCYTES # (AUTO) 0.6 X10'3 (1.1-4.8); LYMPHOCYTES % (AUTO) 3.3 % (21-51); MEAN CORPUSCULAR HEMOGLOBIN 34.5 PG (27.0-31.0); MEAN CORPUSCULAR HGB CONC 32.9 g/dL (33.0-36.5); MEAN CORPUSCULAR VOLUME 104.7 FL (78-98); MEAN PLATELET VOLUME 9.5 FL (7.4-10.4); MONOCYTES # (AUTO) 0.4 X10'3 (0-0.9); MONOCYTES % (AUTO) 2.4 % (2-12); NEUTROPHILS # (AUTO) 16.1 X10'3 (1.8-7.7); NEUTROPHILS % (AUTO) 94.1 % (42-75); PLATELET COUNT 236 X10'3 (140-440); RED BLOOD COUNT 2.24 X10'6 (4.20-5.60); RED CELL DISTRIBUTION WIDTH 14.3 % (11.5-14.5); WHITE BLOOD COUNT 17.1 X10'3 (4.5-11.0)
[2023-08-26] MEDS ORDERED: potassium Cl 40MEQ/1/2NS 520ml 520 ML IV ONE ×2 (07:00→11:00)
[2023-08-26 07:29] LABS: C DIFF ANTIGEN NEGATIVE (NEGATIVE); C DIFF SPECIMEN=DIARRHEA? ACCEPTABLE; C DIFFICILE TOXINS A&B NEGATIVE (Neg)
[2023-08-26] MEDS: heparin, porcine 5000 units/ml vial SQ SCH ×2 (08:00→20:00)
[2023-08-26] MEDS: K and/or MAG REPLACEMENT MC SCH ×2 (08:00→20:42)
[2023-08-26] MEDS: docusate sod 100mg capsule PO SCH ×2 (09:14→19:21)
[2023-08-26] MEDS: POTASSIUM BICARB 20meq eff tab 20 MEQ TABLET.EFF PO PRN ×2 (09:14→13:58)
[2023-08-26] MEDS: multivitamins, therapeutics tablet PO SCH (09:14)
[2023-08-26] MEDS: cefepime 1GM/NS ADD-VANTAGE 100 ML IV SCH ×2 (09:27→19:38)
[2023-08-26] MEDS: potassium cl 20mEq in 1/2 NS 1,000 ML IV SCH ×2 (09:28→20:55)
[2023-08-26] MEDS ORDERED: cefepime inj. 0.25 GM in normal saline 100ml IV soln 102.5 ML IV SCH (11:00)
[2023-08-26 12:40] VITALS: RESP 16
[2023-08-26 13:48] LABS: ALBUMIN 1.1 G/DL (3.4-5.0); ANION GAP 8 (8-16); BLOOD UREA NITROGEN 58 MG/DL (7-18); BUN/CREATININE RATIO 49.2 (10.0-20.0); CALCIUM 8.3 MG/DL (8.5-10.1); CHLORIDE 109 MMOL/L (99-107); CREATININE 1.18 MG/DL (0.40-0.90); GLUCOSE 106 MG/DL (70-104); SODIUM 140 MMOL/L (135-145); TOTAL CARBON DIOXIDE 22.6 MMOL/L (24-32); eCRCL 30 ML/MIN; eGFR 44 ML/MIN
[2023-08-26 13:53] LABS: POTASSIUM 2.7 MMOL/L (3.5-5.1)
[2023-08-26] MEDS: potassium Cl 40MEQ/1/2NS 520ml 520 ML IV PRN ×2 (14:57→20:39)
[2023-08-26 18:00] VITALS: BP 99/57; PULSE 95; RESP 17; TEMP 97.9; O2SAT 99
[2023-08-26] MEDS: lactose-reduced food (Ensure Enlive) - 237ml bottle PO SCH (18:00)
[2023-08-26] MEDS: HYDROmorphone inj. 0.5 MG/0.5 ML DISP.SYRIN IV PRN (19:36)
[2023-08-26 21:00] VITALS: RESP 16; O2SAT 90
[2023-08-26] MEDS ORDERED: vancomycin inj 500 MG in normal saline 100ml IV soln 100 ML IV SCH (21:00)
[2023-08-26 22:00] VITALS: BP 137/77; PULSE 67; RESP 16; TEMP 97.1; O2SAT 90
[2023-08-27] VITALS (20 sets, daily range): BP systolic 87–134; BP diastolic 33–76; PULSE 62–107; RESP 15–23; TEMP 96.6–98.6; O2SAT 91–98
[2023-08-27] MEDS: HYDROmorphone inj. 0.5 MG/0.5 ML DISP.SYRIN IV PRN (03:14)
[2023-08-27] MEDS: ondansetron/PF 4mg/2ml inj IV PRN (05:11)
[2023-08-27 06:15] LABS: ALANINE AMINOTRANSFERASE 26 U/L (12-78); ALBUMIN 1.1 G/DL (3.4-5.0); ALBUMIN/GLOBULIN RATIO 0.3 (1.1-1.5); ALKALINE PHOSPHATASE 122 IU/L (46-116); ASPARTATE AMINO TRANSFERASE 40 U/L (10-37); BILIRUBIN,TOTAL 0.3 MG/DL (0.1-1.0); BLOOD UREA NITROGEN 45 MG/DL (7-18); CALCIUM 7.8 MG/DL (8.5-10.1); CHLORIDE 112 MMOL/L (99-107); CREATININE 0.79 MG/DL (0.40-0.90); GLUCOSE 111 MG/DL (70-104); LIPASE 71 U/L (16-77); TOTAL CARBON DIOXIDE 24.9 MMOL/L (24-32); TOTAL PROTEIN 5.2 G/DL (6.4-8.2); eCRCL 45 ML/MIN; eGFR 71 ML/MIN
[2023-08-27 06:19] LABS: ANION GAP 7 (8-16); SODIUM 144 MMOL/L (135-145)
[2023-08-27 06:25] LABS: BASOPHILS % (AUTO) 0.2 % (0-1); EOSINOPHILS % (AUTO) 0.1 % (0-6); LYMPHOCYTES # (AUTO) 0.6 X10'3 (1.1-4.8); LYMPHOCYTES % (AUTO) 4.4 % (21-51); MEAN CORPUSCULAR HEMOGLOBIN 33.5 PG (27.0-31.0); MEAN CORPUSCULAR HGB CONC 32.6 g/dL (33.0-36.5); MEAN CORPUSCULAR VOLUME 102.9 FL (78-98); MEAN PLATELET VOLUME 8.8 FL (7.4-10.4); MONOCYTES # (AUTO) 0.4 X10'3 (0-0.9); MONOCYTES % (AUTO) 3.3 % (2-12); NEUTROPHILS # (AUTO) 12.2 X10'3 (1.8-7.7); PLATELET COUNT 213 X10'3 (140-440); RED BLOOD COUNT 1.91 X10'6 (4.20-5.60); RED CELL DISTRIBUTION WIDTH 13.9 % (11.5-14.5); WHITE BLOOD COUNT 13.3 X10'3 (4.5-11.0)
[2023-08-27 06:47] LABS: HEMATOCRIT 19.7 % (35.0-45.0); HEMOGLOBIN 6.4 g/dl (12.0-16.0)
[2023-08-27] MEDS: K and/or MAG REPLACEMENT MC SCH ×2 (08:00→20:46)
[2023-08-27] MEDS: lactose-reduced food (Ensure Enlive) - 237ml bottle PO SCH ×3 (08:00→18:00)
[2023-08-27] MEDS ORDERED: cefepime 1GM/NS ADD-VANTAGE 100 ML IV SCH (08:00)
[2023-08-27] MEDS: docusate sod 100mg capsule PO SCH ×2 (08:00→20:30)
[2023-08-27] MEDS ORDERED: sodium phosphate inj. 15 MMOL in dextrose 5%-water 250 ML IV PRN (08:00)
[2023-08-27] MEDS ORDERED: sodium phosphate inj. 30 MMOL in dextrose 5%-water 250 ML IV PRN (08:00)
[2023-08-27] MEDS ORDERED: LORazepam 2 mg/ml vial IV PRN (08:20)
[2023-08-27] MEDS ORDERED: LORazepam 1 MG tablet PO PRN (08:20)
[2023-08-27] MEDS ORDERED: pantoprazole 40mg IV 80 MG in normal saline 100ml IV soln 100 ML IV ONE (08:45)
[2023-08-27] MEDS ORDERED: pantoprazole 40MG/NS 100ML BAG 100 ML IV SCH (09:00)
[2023-08-27] MEDS: cefepime 1GM/NS ADD-VANTAGE 100 ML IV SCH (10:35)
[2023-08-27] MEDS: multivitamins, therapeutics tablet PO SCH (10:36)
[2023-08-27] MEDS: heparin, porcine 5000 units/ml vial SQ SCH ×2 (10:36→20:00)
[2023-08-27] MEDS: magnesium 4gm in 100ml NS 100 ML IV PRN ×2 (11:20→11:23)
[2023-08-27] MEDS: salt irrigation nasal spray 45 ML SPRAY NS SCH ×2 (12:00→21:47)
[2023-08-27] MEDS ORDERED: fentaNYL/PF 50MCG/1 ML 2ML syringe ONE ×2 (17:07→17:38)
[2023-08-27] MEDS ORDERED: LIDOcaine Viscous 15ml cup ONE (17:08)
[2023-08-27] MEDS ORDERED: MIDAZolam 1 MG/ML 5ML VIAL ONE ×2 (17:08→17:39)
[2023-08-27] MEDS ORDERED: epiNEPHrine 0.1mg/ml 10ml syringe ONE (17:38)
[2023-08-27] MEDS: potassium cl 20mEq in 1/2 NS 1,000 ML IV SCH ×2 (20:45→21:55)
[2023-08-27] MEDS: vancomycin/NS 1 GM ADD-VANTAGE 250 ML IV SCH (21:47)
[2023-08-28] MEDS: salt irrigation nasal spray 45 ML SPRAY NS SCH ×7 (04:00→23:22)
[2023-08-28 06:00] VITALS: BP 105/55; PULSE 95; RESP 14; TEMP 97.7; O2SAT 100
[2023-08-28 06:16] LABS: MEAN CORPUSCULAR VOLUME 101.2 FL (78-98); PROTHROMBIN TIME 11.2 SECONDS (9.0-12.0)
[2023-08-28 06:19] LABS: BASOPHILS % (AUTO) 0.1 % (0-1); EOSINOPHILS % (AUTO) 0.2 % (0-6); LYMPHOCYTES # (AUTO) 0.7 X10'3 (1.1-4.8); LYMPHOCYTES % (AUTO) 4.8 % (21-51); MEAN CORPUSCULAR HEMOGLOBIN 33.9 PG (27.0-31.0); MEAN CORPUSCULAR HGB CONC 33.5 g/dL (33.0-36.5); MEAN PLATELET VOLUME 8.7 FL (7.4-10.4); MONOCYTES # (AUTO) 0.4 X10'3 (0-0.9); MONOCYTES % (AUTO) 2.9 % (2-12); NEUTROPHILS # (AUTO) 12.8 X10'3 (1.8-7.7); PLATELET COUNT 173 X10'3 (140-440); RED CELL DISTRIBUTION WIDTH 15.1 % (11.5-14.5); WHITE BLOOD COUNT 13.9 X10'3 (4.5-11.0)
[2023-08-28 06:22] LABS: HEMATOCRIT 20.2 % (35.0-45.0); HEMOGLOBIN 6.8 g/dl (12.0-16.0)
[2023-08-28 06:23] LABS: ALANINE AMINOTRANSFERASE 22 U/L (12-78); ALBUMIN/GLOBULIN RATIO 0.3 (1.1-1.5); ALKALINE PHOSPHATASE 94 IU/L (46-116); ANION GAP 9 (8-16); ASPARTATE AMINO TRANSFERASE 38 U/L (10-37); BILIRUBIN,TOTAL 0.3 MG/DL (0.1-1.0); BLOOD UREA NITROGEN 27 MG/DL (7-18); BUN/CREATININE RATIO 39.7 (10.0-20.0); CALCIUM 7.1 MG/DL (8.5-10.1); CHLORIDE 112 MMOL/L (99-107); CREATININE 0.68 MG/DL (0.40-0.90); GLUCOSE 79 MG/DL (70-104); LIPASE 118 U/L (16-77); PHOSPHORUS 1.6 MG/DL (2.3-4.5); SODIUM 142 MMOL/L (135-145); TOTAL CARBON DIOXIDE 21.5 MMOL/L (24-32); TOTAL PROTEIN 4.7 G/DL (6.4-8.2); eCRCL 53 ML/MIN; eGFR 84 ML/MIN
[2023-08-28] MEDS: K and/or MAG REPLACEMENT MC SCH ×2 (07:41→20:00)
[2023-08-28] MEDS: POTASSIUM BICARB 20meq eff tab 20 MEQ TABLET.EFF PO PRN ×2 (07:54→13:32)
[2023-08-28] MEDS: Neutra Phos packet PO PRN ×2 (07:55→13:32)
[2023-08-28] MEDS: folic acid 1mg tablet PO SCH (07:56)
[2023-08-28] MEDS: docusate sod 100mg capsule PO SCH ×2 (07:56→21:32)
[2023-08-28] MEDS: multivitamins, therapeutics tablet PO SCH (07:57)
[2023-08-28] MEDS: thiamine 100mg tablet PO SCH (07:57)
[2023-08-28] MEDS: heparin, porcine 5000 units/ml vial SQ SCH ×2 (08:00→20:00)
[2023-08-28] MEDS ORDERED: cefepime 1GM/NS ADD-VANTAGE 100 ML IV SCH (08:00)
[2023-08-28] MEDS: lactose-reduced food (Ensure Enlive) - 237ml bottle PO SCH ×3 (08:10→18:00)
[2023-08-28 09:56] LABS: HEMATOCRIT 22.1 % (35.0-45.0); HEMOGLOBIN 7.4 g/dl (12.0-16.0); MEAN CORPUSCULAR HEMOGLOBIN 33.7 PG (27.0-31.0); MEAN CORPUSCULAR HGB CONC 33.4 g/dL (33.0-36.5); MEAN CORPUSCULAR VOLUME 100.9 FL (78-98); MEAN PLATELET VOLUME 8.4 FL (7.4-10.4); PLATELET COUNT 185 X10'3 (140-440); RED BLOOD COUNT 2.19 X10'6 (4.20-5.60); RED CELL DISTRIBUTION WIDTH 14.8 % (11.5-14.5); WHITE BLOOD COUNT 15.1 X10'3 (4.5-11.0)
[2023-08-28 10:00] VITALS: BP 97/58; PULSE 79; RESP 16; TEMP 97.3; O2SAT 95
[2023-08-28] MEDS: potassium cl 20mEq in 1/2 NS 1,000 ML IV SCH ×2 (10:25→22:55)
[2023-08-28] MEDS: CefTRIAXone 2gm/D5W 50ml BAG 50 ML IV SCH (11:17)
[2023-08-28] MEDS: pantoprazole 40MG/NS 100ML BAG 100 ML IV SCH ×3 (11:19→20:54)
[2023-08-28] MEDS: metroNIDAZOLE-Flagyl 500mg/NS 100 ML IV SCH ×2 (12:09→21:29)
[2023-08-28] MEDS: acetaminophen 325mg tablet PO PRN (13:35)
[2023-08-28 18:30] VITALS: BP 107/59; PULSE 103; RESP 20; TEMP 97.9; O2SAT 99
[2023-08-28 19:10] VITALS: RESP 20; O2SAT 99
[2023-08-28] MEDS ORDERED: pantoprazole 40mg Tablet.DR PO SCH (20:00)
[2023-08-28] MEDS: HYDROmorphone inj. 0.5 MG/0.5 ML DISP.SYRIN IV PRN (21:39)
[2023-08-28 22:00] VITALS: BP 98/53; PULSE 94; RESP 16; TEMP 97.6; O2SAT 95
[2023-08-28] MEDS: vancomycin/NS 1 GM ADD-VANTAGE 250 ML IV SCH (22:38)
[2023-08-29] MEDS: salt irrigation nasal spray 45 ML SPRAY NS SCH ×5 (03:08→22:31)
[2023-08-29 06:00] VITALS: BP 115/64; PULSE 96; RESP 15; TEMP 97.4; O2SAT 97
[2023-08-29 07:34] LABS: BASOPHILS % (AUTO) 0.3 % (0-1); EOSINOPHILS # (AUTO) 0.1 X10'3 (0-0.9); EOSINOPHILS % (AUTO) 0.4 % (0-6); LYMPHOCYTES # (AUTO) 0.8 X10'3 (1.1-4.8); LYMPHOCYTES % (AUTO) 6.3 % (21-51); MEAN CORPUSCULAR HEMOGLOBIN 33.4 PG (27.0-31.0); MEAN CORPUSCULAR HGB CONC 32.8 g/dL (33.0-36.5); MEAN CORPUSCULAR VOLUME 101.9 FL (78-98); MONOCYTES # (AUTO) 0.4 X10'3 (0-0.9); MONOCYTES % (AUTO) 3.5 % (2-12); NEUTROPHILS # (AUTO) 11.3 X10'3 (1.8-7.7); NEUTROPHILS % (AUTO) 89.5 % (42-75); PLATELET COUNT 134 X10'3 (140-440); RED BLOOD COUNT 2.07 X10'6 (4.20-5.60); RED CELL DISTRIBUTION WIDTH 14.8 % (11.5-14.5); WHITE BLOOD COUNT 12.6 X10'3 (4.5-11.0)
[2023-08-29 07:39] LABS: HEMATOCRIT 21.1 % (35.0-45.0); HEMOGLOBIN 6.9 g/dl (12.0-16.0)
[2023-08-29] MEDS: docusate sod 100mg capsule PO SCH ×2 (07:40→20:00)
[2023-08-29] MEDS: folic acid 1mg tablet PO SCH (07:41)
[2023-08-29] MEDS: pantoprazole 40MG/NS 100ML BAG 100 ML IV SCH ×2 (07:43→20:00)
[2023-08-29] MEDS: pantoprazole 40mg Tablet.DR PO SCH ×2 (07:43→22:19)
[2023-08-29] MEDS: multivitamins, therapeutics tablet PO SCH (07:44)
[2023-08-29] MEDS: thiamine 100mg tablet PO SCH (07:46)
[2023-08-29 07:47] LABS: ALANINE AMINOTRANSFERASE 23 U/L (12-78); ALBUMIN/GLOBULIN RATIO 0.3 (1.1-1.5); ALKALINE PHOSPHATASE 75 IU/L (46-116); ANION GAP 5 (8-16); ASPARTATE AMINO TRANSFERASE 30 U/L (10-37); BILIRUBIN,TOTAL 0.3 MG/DL (0.1-1.0); BLOOD UREA NITROGEN 17 MG/DL (7-18); CHLORIDE 109 MMOL/L (99-107); CREATININE 0.68 MG/DL (0.40-0.90); GLUCOSE 99 MG/DL (70-104); LIPASE 133 U/L (16-77); MAGNESIUM 1.1 MG/DL (1.5-2.4); PHOSPHORUS 1.8 MG/DL (2.3-4.5); POTASSIUM 3.8 MMOL/L (3.5-5.1); SODIUM 141 MMOL/L (135-145); TOTAL CARBON DIOXIDE 27.4 MMOL/L (24-32); TOTAL PROTEIN 4.9 G/DL (6.4-8.2); eCRCL 56 ML/MIN; eGFR 84 ML/MIN
[2023-08-29] MEDS: metroNIDAZOLE-Flagyl 500mg/NS 100 ML IV SCH ×2 (07:47→22:09)
[2023-08-29] MEDS: acetaminophen 325mg tablet PO PRN (07:47)
[2023-08-29] MEDS: heparin, porcine 5000 units/ml vial SQ SCH (07:49)
[2023-08-29] MEDS: lactose-reduced food (Ensure Enlive) - 237ml bottle PO SCH ×3 (07:49→18:00)
[2023-08-29] MEDS: K and/or MAG REPLACEMENT MC SCH ×2 (08:00→20:00)
[2023-08-29] MEDS ORDERED: LORazepam 1 MG tablet PO PRN (08:20)
[2023-08-29] MEDS: CefTRIAXone 2gm/D5W 50ml BAG 50 ML IV SCH (08:44)
[2023-08-29] MEDS: Neutra Phos packet PO PRN ×2 (08:45→22:40)
[2023-08-29 08:53] LABS: BASOPHILS % (AUTO) 0.1 % (0-1); EOSINOPHILS % (AUTO) 0.2 % (0-6); LYMPHOCYTES # (AUTO) 0.8 X10'3 (1.1-4.8); LYMPHOCYTES % (AUTO) 5.5 % (21-51); MEAN CORPUSCULAR HEMOGLOBIN 33.5 PG (27.0-31.0); MEAN CORPUSCULAR HGB CONC 33.5 g/dL (33.0-36.5); MEAN PLATELET VOLUME 8.4 FL (7.4-10.4); MONOCYTES # (AUTO) 0.5 X10'3 (0-0.9); MONOCYTES % (AUTO) 3.8 % (2-12); NEUTROPHILS # (AUTO) 12.4 X10'3 (1.8-7.7); NEUTROPHILS % (AUTO) 90.4 % (42-75); PLATELET COUNT 177 X10'3 (140-440); RED CELL DISTRIBUTION WIDTH 14.6 % (11.5-14.5); WHITE BLOOD COUNT 13.8 X10'3 (4.5-11.0)
[2023-08-29 09:06] LABS: INR 1.1 INR; PROTHROMBIN TIME 11.4 SECONDS (9.0-12.0)
[2023-08-29] MEDS ORDERED: magnesium Cl slow-release 64mg tablet PO PRN (09:35)
[2023-08-29] MEDS ORDERED: magnesium 2GM in 50ml NS 50 ML IV PRN (09:35)
[2023-08-29 10:00] VITALS: BP 100/57; PULSE 92; RESP 18; TEMP 97.9; O2SAT 98
[2023-08-29] MEDS: potassium cl 20mEq in 1/2 NS 1,000 ML IV SCH ×2 (12:35→23:25)
[2023-08-29 19:00] VITALS: BP 113/61; PULSE 95; RESP 14; TEMP 97.8; O2SAT 96
[2023-08-29 22:00] VITALS: BP 118/61; PULSE 100; RESP 22; TEMP 98.3; O2SAT 98
[2023-08-29] MEDS: HYDROcodone/acetaminophen 5mg/325mg tablet PO PRN ×2 (22:39→23:35)
[2023-08-29] MEDS: vancomycin/NS 1 GM ADD-VANTAGE 250 ML IV SCH (23:29)
[2023-08-30] VITALS (7 sets, daily range): BP systolic 108–126; BP diastolic 58–95; PULSE 86–103; RESP 15–18; TEMP 97.3–97.9; O2SAT 95–100
[2023-08-30] MEDS: salt irrigation nasal spray 45 ML SPRAY NS SCH ×6 (04:00→22:08)
[2023-08-30] MEDS: HYDROcodone/acetaminophen 10/325mg tab PO PRN ×3 (05:28→14:07)
[2023-08-30 06:54] LABS: INR 1.2 INR; PROTHROMBIN TIME 12.5 SECONDS (9.0-12.0)
[2023-08-30 06:58] LABS: ALANINE AMINOTRANSFERASE 14 U/L (12-78); ALBUMIN 0.9 G/DL (3.4-5.0); ALBUMIN/GLOBULIN RATIO 0.2 (1.1-1.5); ALKALINE PHOSPHATASE 65 IU/L (46-116); ANION GAP 5 (8-16); ASPARTATE AMINO TRANSFERASE 30 U/L (10-37); BILIRUBIN,TOTAL 0.3 MG/DL (0.1-1.0); BLOOD UREA NITROGEN 10 MG/DL (7-18); BUN/CREATININE RATIO 14.3 (10.0-20.0); CALCIUM 6.9 MG/DL (8.5-10.1); CHLORIDE 109 MMOL/L (99-107); GLUCOSE 91 MG/DL (70-104); LIPASE 124 U/L (16-77); PHOSPHORUS 2.1 MG/DL (2.3-4.5); SODIUM 137 MMOL/L (135-145); TOTAL CARBON DIOXIDE 22.8 MMOL/L (24-32); TOTAL PROTEIN 4.7 G/DL (6.4-8.2); eCRCL 54 ML/MIN; eGFR 81 ML/MIN
[2023-08-30] MEDS: pantoprazole 40MG/NS 100ML BAG 100 ML IV SCH ×2 (08:00→20:00)
[2023-08-30] MEDS: lactose-reduced food (Ensure Enlive) - 237ml bottle PO SCH ×3 (08:00→18:00)
[2023-08-30] MEDS: docusate sod 100mg capsule PO SCH ×2 (08:00→22:08)
[2023-08-30] MEDS: K and/or MAG REPLACEMENT MC SCH ×2 (08:00→22:05)
[2023-08-30] MEDS ORDERED: folic acid 1mg tablet PO SCH (08:00)
[2023-08-30] MEDS ORDERED: thiamine 100mg tablet PO SCH (08:00)
[2023-08-30] MEDS: multivitamins, therapeutics tablet PO SCH (08:01)
[2023-08-30] MEDS: metroNIDAZOLE-Flagyl 500mg/NS 100 ML IV SCH ×2 (08:02→21:57)
[2023-08-30] MEDS: folic acid 1mg tablet PO SCH (08:02)
[2023-08-30] MEDS: CefTRIAXone 2gm/D5W 50ml BAG 50 ML IV SCH (08:02)
[2023-08-30] MEDS: thiamine 100mg tablet PO SCH (08:02)
[2023-08-30] MEDS: pantoprazole 40mg Tablet.DR PO SCH ×2 (08:02→21:54)
[2023-08-30] MEDS: POTASSIUM BICARB 20meq eff tab 20 MEQ TABLET.EFF PO PRN ×2 (08:08→21:57)
[2023-08-30] MEDS: ondansetron/PF 4mg/2ml inj IV PRN ×2 (08:35→22:16)
[2023-08-30 10:37] LABS: BASOPHILS % (AUTO) 0.2 % (0-1); EOSINOPHILS % (AUTO) 0.4 % (0-6); HEMOGLOBIN 7.2 g/dl (12.0-16.0); LYMPHOCYTES # (AUTO) 0.6 X10'3 (1.1-4.8); LYMPHOCYTES % (AUTO) 4.6 % (21-51); MEAN CORPUSCULAR HEMOGLOBIN 34.2 PG (27.0-31.0); MEAN CORPUSCULAR HGB CONC 33.3 g/dL (33.0-36.5); MEAN CORPUSCULAR VOLUME 102.6 FL (78-98); MEAN PLATELET VOLUME 9.2 FL (7.4-10.4); MONOCYTES # (AUTO) 0.7 X10'3 (0-0.9); MONOCYTES % (AUTO) 5.2 % (2-12); NEUTROPHILS # (AUTO) 11.9 X10'3 (1.8-7.7); NEUTROPHILS % (AUTO) 89.6 % (42-75); PLATELET COUNT 177 X10'3 (140-440); RED CELL DISTRIBUTION WIDTH 14.9 % (11.5-14.5); WHITE BLOOD COUNT 13.3 X10'3 (4.5-11.0)
[2023-08-30 10:39] LABS: HEMATOCRIT 21.5 % (35.0-45.0)
[2023-08-30 11:06] LABS: TOTAL CELLS COUNTED 100
[2023-08-30 11:07] LABS: ANISOCYTOSIS FEW; BURR CELLS FEW; HYPERSEGMENTED NEUTROPHILS FEW; PLATELET ESTIMATE NORMAL
[2023-08-30] MEDS: potassium cl 20mEq in 1/2 NS 1,000 ML IV SCH ×2 (12:25→19:05)
[2023-08-30] MEDS ORDERED: VANCOMYCIN LEVEL IV ONE (20:30)
[2023-08-30] MEDS: vancomycin/NS 1 GM ADD-VANTAGE 250 ML IV SCH ×2 (22:00→23:21)
[2023-08-31] VITALS (17 sets, daily range): BP systolic 100–113; BP diastolic 52–63; PULSE 70–112; RESP 14–22; TEMP 97.1–98.1; O2SAT 92–100
[2023-08-31] MEDS: salt irrigation nasal spray 45 ML SPRAY NS SCH ×2 (04:00)
[2023-08-31] MEDS: potassium cl 20mEq in 1/2 NS 1,000 ML IV SCH ×3 (05:53→15:01)
[2023-08-31 07:46] LABS: ALBUMIN 0.9 G/DL (3.4-5.0); ANION GAP 3 (8-16); BLOOD UREA NITROGEN 7 MG/DL (7-18); CHLORIDE 108 MMOL/L (99-107); GLUCOSE 96 MG/DL (70-104); PHOSPHORUS 2.4 MG/DL (2.3-4.5); POTASSIUM 3.7 MMOL/L (3.5-5.1); SODIUM 138 MMOL/L (135-145); TOTAL CARBON DIOXIDE 27.5 MMOL/L (24-32); eCRCL 54 ML/MIN; eGFR 81 ML/MIN
[2023-08-31] MEDS: multivitamins, therapeutics tablet PO SCH (08:00)
[2023-08-31] MEDS: pantoprazole 40mg Tablet.DR PO SCH ×4 (08:00→22:37)
[2023-08-31] MEDS: K and/or MAG REPLACEMENT MC SCH ×2 (08:00→20:00)
[2023-08-31] MEDS: thiamine 100mg tablet PO SCH (08:00)
[2023-08-31] MEDS: lactose-reduced food (Ensure Enlive) - 237ml bottle PO SCH ×3 (08:00→18:00)
[2023-08-31] MEDS: folic acid 1mg tablet PO SCH (08:00)
[2023-08-31] MEDS: docusate sod 100mg capsule PO SCH ×2 (08:00→20:00)
[2023-08-31] MEDS: metroNIDAZOLE-Flagyl 500mg/NS 100 ML IV SCH ×2 (08:08→22:36)
[2023-08-31] MEDS: magnesium 4gm in 100ml NS 100 ML IV PRN ×2 (08:08→15:05)
[2023-08-31] MEDS: HYDROcodone/acetaminophen 10/325mg tab PO PRN ×2 (08:09→14:40)
[2023-08-31] MEDS: CefTRIAXone 2gm/D5W 50ml BAG 50 ML IV SCH (09:09)
[2023-08-31] MEDS: LORazepam 2 mg/ml vial IV PRN ×2 (09:15→14:53)
[2023-08-31 11:17] LABS: BASOPHILS % (AUTO) 0.4 % (0-1); EOSINOPHILS # (AUTO) 0.1 X10'3 (0-0.9); EOSINOPHILS % (AUTO) 0.4 % (0-6); LYMPHOCYTES # (AUTO) 0.8 X10'3 (1.1-4.8); LYMPHOCYTES % (AUTO) 6.1 % (21-51); MEAN CORPUSCULAR HEMOGLOBIN 33.6 PG (27.0-31.0); MEAN CORPUSCULAR HGB CONC 32.1 g/dL (33.0-36.5); MEAN CORPUSCULAR VOLUME 104.8 FL (78-98); MEAN PLATELET VOLUME 9.6 FL (7.4-10.4); MONOCYTES # (AUTO) 0.6 X10'3 (0-0.9); MONOCYTES % (AUTO) 4.5 % (2-12); NEUTROPHILS # (AUTO) 11.8 X10'3 (1.8-7.7); NEUTROPHILS % (AUTO) 88.6 % (42-75); PLATELET COUNT 201 X10'3 (140-440); RED BLOOD COUNT 1.99 X10'6 (4.20-5.60); RED CELL DISTRIBUTION WIDTH 14.9 % (11.5-14.5); WHITE BLOOD COUNT 13.4 X10'3 (4.5-11.0)
[2023-08-31 11:19] LABS: HEMOGLOBIN 6.7 g/dl (12.0-16.0)
[2023-08-31 11:20] LABS: HEMATOCRIT 20.9 % (35.0-45.0)
[2023-08-31] MEDS ORDERED: LIDOcaine 2% (20mg/ml) 5ml vial ONE (17:28)
[2023-08-31] MEDS ORDERED: sevoflurane 250ml liquid IH ONE (17:28)
[2023-08-31] MEDS ORDERED: fentaNYL/PF 50MCG/1 ML 2ML syringe ONE ×2 (17:33→18:04)
[2023-08-31] MEDS ORDERED: propofol inj 20 ML IV ONE (18:03)
[2023-08-31] MEDS ORDERED: ePHEDrine 50MG/ML INJ. ONE (18:33)
[2023-08-31] MEDS ORDERED: ringers solution, lacted 1,000 ML IV SCH (18:55)
[2023-08-31] MEDS ORDERED: ondansetron/PF 4mg/2ml inj IV PRN (18:55)
[2023-08-31] MEDS ORDERED: morphine 2 MG/ML inj. syringe IV PRN (18:55)
[2023-08-31] MEDS ORDERED: morphine 4 MG/ML inj SYRINge IV PRN (18:55)
[2023-08-31] MEDS ORDERED: proCHLORperazine 10 MG/2 ml inj IV PRN (18:55)
[2023-08-31] MEDS ORDERED: meperidine/PF 25mg/ml syringe IV PRN ×3 (18:55)
[2023-08-31] MEDS: VANCOMYCIN 750MG IV in NS 250 ML IV SCH (23:56)
[2023-09-01] VITALS (12 sets, daily range): BP systolic 101–120; BP diastolic 55–67; PULSE 83–101; RESP 11–18; TEMP 97–98.1; O2SAT 91–95
[2023-09-01] MEDS: HYDROcodone/acetaminophen 10/325mg tab PO PRN (05:13)
[2023-09-01 07:25] LABS: ALBUMIN 1.1 G/DL (3.4-5.0); ANION GAP 5 (8-16); BLOOD UREA NITROGEN 5 MG/DL (7-18); BUN/CREATININE RATIO 7.6 (10.0-20.0); CALCIUM 6.9 MG/DL (8.5-10.1); CHLORIDE 108 MMOL/L (99-107); CREATININE 0.66 MG/DL (0.40-0.90); GLUCOSE 104 MG/DL (70-104); MAGNESIUM 1.6 MG/DL (1.5-2.4); PHOSPHORUS 2.2 MG/DL (2.3-4.5); POTASSIUM 3.1 MMOL/L (3.5-5.1); SODIUM 140 MMOL/L (135-145); TOTAL CARBON DIOXIDE 26.6 MMOL/L (24-32); eCRCL 57 ML/MIN; eGFR 87 ML/MIN
[2023-09-01] MEDS: lactose-reduced food (Ensure Enlive) - 237ml bottle PO SCH ×2 (08:00→18:00)
[2023-09-01] MEDS: K and/or MAG REPLACEMENT MC SCH ×2 (08:00→20:00)
[2023-09-01] MEDS: pantoprazole 40mg Tablet.DR PO SCH ×3 (08:00→19:56)
[2023-09-01] MEDS: docusate sod 100mg capsule PO SCH ×2 (08:00→20:00)
[2023-09-01] MEDS: multivitamins, therapeutics tablet PO SCH (08:33)
[2023-09-01] MEDS: CefTRIAXone 2gm/D5W 50ml BAG 50 ML IV SCH (08:34)
[2023-09-01] MEDS: thiamine 100mg tablet PO SCH (08:34)
[2023-09-01] MEDS: metroNIDAZOLE-Flagyl 500mg/NS 100 ML IV SCH (08:34)
[2023-09-01] MEDS: folic acid 1mg tablet PO SCH (08:34)
[2023-09-01] MEDS ORDERED: magnesium 2GM in 50ml NS 50 ML IV PRN (10:05)
[2023-09-01] MEDS ORDERED: magnesium 4gm in 100ml NS 100 ML IV PRN (10:05)
[2023-09-01 10:25] LABS: BASOPHILS % (AUTO) 0.3 % (0-1); EOSINOPHILS # (AUTO) 0.1 X10'3 (0-0.9); EOSINOPHILS % (AUTO) 0.8 % (0-6); LYMPHOCYTES # (AUTO) 0.7 X10'3 (1.1-4.8); LYMPHOCYTES % (AUTO) 8.4 % (21-51); MEAN CORPUSCULAR HEMOGLOBIN 33.9 PG (27.0-31.0); MEAN CORPUSCULAR HGB CONC 33.2 g/dL (33.0-36.5); MEAN CORPUSCULAR VOLUME 102.1 FL (78-98); MEAN PLATELET VOLUME 9.2 FL (7.4-10.4); MONOCYTES # (AUTO) 0.5 X10'3 (0-0.9); MONOCYTES % (AUTO) 5.4 % (2-12); NEUTROPHILS # (AUTO) 7.6 X10'3 (1.8-7.7); NEUTROPHILS % (AUTO) 85.1 % (42-75); PLATELET COUNT 217 X10'3 (140-440); RED BLOOD COUNT 1.67 X10'6 (4.20-5.60); RED CELL DISTRIBUTION WIDTH 14.9 % (11.5-14.5); WHITE BLOOD COUNT 8.9 X10'3 (4.5-11.0)
[2023-09-01 10:28] LABS: HEMOGLOBIN 5.6 g/dl (12.0-16.0)
[2023-09-01 11:13] LABS: ALANINE AMINOTRANSFERASE 10 U/L (12-78); ALBUMIN/GLOBULIN RATIO 0.3 (1.1-1.5); ALKALINE PHOSPHATASE 60 IU/L (46-116); ASPARTATE AMINO TRANSFERASE 17 U/L (10-37); BILIRUBIN,DIRECT 0.1 MG/DL (0-0.3); BILIRUBIN,TOTAL 0.3 MG/DL (0.1-1.0); TOTAL PROTEIN 4.5 G/DL (6.4-8.2)
[2023-09-01] MEDS: ondansetron/PF 4mg/2ml inj IV PRN (11:20)
[2023-09-01] MEDS: POTASSIUM BICARB 20meq eff tab 20 MEQ TABLET.EFF PO PRN ×2 (11:20→19:56)
[2023-09-01] MEDS: Neutra Phos packet PO PRN (11:20)
[2023-09-01] MEDS: metroNIDAZOLE 500mg tablet PO SCH (19:56)
[2023-09-02] VITALS (7 sets, daily range): BP systolic 110–124; BP diastolic 57–70; PULSE 67–96; RESP 12–18; TEMP 97–98.6; O2SAT 93–97
[2023-09-02] MEDS: VANCOMYCIN 750MG IV in NS 250 ML IV SCH ×2 (00:36→21:02)
[2023-09-02] MEDS: potassium cl 20mEq in 1/2 NS 1,000 ML IV SCH ×3 (00:36→13:30)
[2023-09-02 06:11] LABS: ALBUMIN 1.1 G/DL (3.4-5.0); ANION GAP 4 (8-16); BLOOD UREA NITROGEN 5 MG/DL (7-18); BUN/CREATININE RATIO 6.8 (10.0-20.0); CALCIUM 7.2 MG/DL (8.5-10.1); CHLORIDE 108 MMOL/L (99-107); CREATININE 0.73 MG/DL (0.40-0.90); GLUCOSE 88 MG/DL (70-104); MAGNESIUM 1.4 MG/DL (1.5-2.4); PHOSPHORUS 2.4 MG/DL (2.3-4.5); POTASSIUM 3.9 MMOL/L (3.5-5.1); SODIUM 138 MMOL/L (135-145); TOTAL CARBON DIOXIDE 26.1 MMOL/L (24-32); eCRCL 52 ML/MIN; eGFR 77 ML/MIN
[2023-09-02] MEDS: docusate sod 100mg capsule PO SCH (07:07)
[2023-09-02 07:14] LABS: BASOPHILS # (AUTO) 0.1 X10'3 (0-0.2); BASOPHILS % (AUTO) 0.4 % (0-1); EOSINOPHILS # (AUTO) 0.1 X10'3 (0-0.9); EOSINOPHILS % (AUTO) 0.7 % (0-6); HEMATOCRIT 27.4 % (35.0-45.0); HEMOGLOBIN 9.2 g/dl (12.0-16.0); LYMPHOCYTES # (AUTO) 1.3 X10'3 (1.1-4.8); LYMPHOCYTES % (AUTO) 10.4 % (21-51); MEAN CORPUSCULAR HEMOGLOBIN 31.5 PG (27.0-31.0); MEAN CORPUSCULAR HGB CONC 33.7 g/dL (33.0-36.5); MEAN CORPUSCULAR VOLUME 93.4 FL (78-98); MEAN PLATELET VOLUME 9.3 FL (7.4-10.4); MONOCYTES # (AUTO) 0.7 X10'3 (0-0.9); MONOCYTES % (AUTO) 5.5 % (2-12); PLATELET COUNT 268 X10'3 (140-440); RED BLOOD COUNT 2.93 X10'6 (4.20-5.60); RED CELL DISTRIBUTION WIDTH 18.2 % (11.5-14.5); WHITE BLOOD COUNT 12.1 X10'3 (4.5-11.0)
[2023-09-02] MEDS: K and/or MAG REPLACEMENT MC SCH ×2 (08:00→20:00)
[2023-09-02] MEDS: lactose-reduced food (Ensure Enlive) - 237ml bottle PO SCH ×3 (08:00→18:00)
[2023-09-02] MEDS: folic acid 1mg tablet PO SCH (09:43)
[2023-09-02] MEDS: metroNIDAZOLE 500mg tablet PO SCH ×2 (09:43→21:02)
[2023-09-02] MEDS: magnesium Cl slow-release 64mg tablet PO PRN (09:43)
[2023-09-02] MEDS: multivitamins, therapeutics tablet PO SCH (09:43)
[2023-09-02] MEDS: CefTRIAXone 2gm/D5W 50ml BAG 50 ML IV SCH (09:43)
[2023-09-02] MEDS: thiamine 100mg tablet PO SCH (09:44)
[2023-09-02] MEDS: pantoprazole 40mg Tablet.DR PO SCH ×2 (09:44→21:02)
[2023-09-03] MEDS: HYDROcodone/acetaminophen 5mg/325mg tablet PO PRN (02:37)
[2023-09-03] MEDS: potassium cl 20mEq in 1/2 NS 1,000 ML IV SCH ×2 (03:55→11:34)
[2023-09-03 05:00] VITALS: BP 121/62; PULSE 93; RESP 11; TEMP 97.9; O2SAT 97
[2023-09-03 08:00] VITALS: RESP 16; O2SAT 97
[2023-09-03] MEDS: lactose-reduced food (Ensure Enlive) - 237ml bottle PO SCH ×3 (08:00→18:13)
[2023-09-03 08:29] LABS: BASOPHILS # (AUTO) 0.1 X10'3 (0-0.2); BASOPHILS % (AUTO) 0.4 % (0-1); EOSINOPHILS # (AUTO) 0.1 X10'3 (0-0.9); EOSINOPHILS % (AUTO) 0.7 % (0-6); HEMATOCRIT 29.3 % (35.0-45.0); HEMOGLOBIN 9.7 g/dl (12.0-16.0); LYMPHOCYTES # (AUTO) 1.1 X10'3 (1.1-4.8); LYMPHOCYTES % (AUTO) 9.2 % (21-51); MEAN CORPUSCULAR HEMOGLOBIN 31.8 PG (27.0-31.0); MEAN CORPUSCULAR HGB CONC 33.3 g/dL (33.0-36.5); MEAN CORPUSCULAR VOLUME 95.5 FL (78-98); MEAN PLATELET VOLUME 8.7 FL (7.4-10.4); MONOCYTES # (AUTO) 0.7 X10'3 (0-0.9); MONOCYTES % (AUTO) 5.5 % (2-12); NEUTROPHILS # (AUTO) 10.6 X10'3 (1.8-7.7); NEUTROPHILS % (AUTO) 84.2 % (42-75); PLATELET COUNT 281 X10'3 (140-440); RED BLOOD COUNT 3.06 X10'6 (4.20-5.60); RED CELL DISTRIBUTION WIDTH 18.6 % (11.5-14.5); WHITE BLOOD COUNT 12.6 X10'3 (4.5-11.0)
[2023-09-03] MEDS: CefTRIAXone 2gm/D5W 50ml BAG 50 ML IV SCH (08:30)
[2023-09-03] MEDS: folic acid 1mg tablet PO SCH (08:30)
[2023-09-03] MEDS: thiamine 100mg tablet PO SCH (08:30)
[2023-09-03] MEDS: metroNIDAZOLE 500mg tablet PO SCH ×2 (08:30→21:33)
[2023-09-03] MEDS: pantoprazole 40mg Tablet.DR PO SCH ×2 (08:30→21:34)
[2023-09-03] MEDS: multivitamins, therapeutics tablet PO SCH (08:30)
[2023-09-03 09:06] LABS: ALANINE AMINOTRANSFERASE 9 U/L (12-78); ALBUMIN/GLOBULIN RATIO 0.3 (1.1-1.5); ALKALINE PHOSPHATASE 70 IU/L (46-116); ANION GAP 4 (8-16); ASPARTATE AMINO TRANSFERASE 21 U/L (10-37); BILIRUBIN,TOTAL 0.4 MG/DL (0.1-1.0); BLOOD UREA NITROGEN 4 MG/DL (7-18); BUN/CREATININE RATIO 5.2 (10.0-20.0); CALCIUM 7.1 MG/DL (8.5-10.1); CHLORIDE 108 MMOL/L (99-107); CREATININE 0.77 MG/DL (0.40-0.90); GLUCOSE 90 MG/DL (70-104); POTASSIUM 3.2 MMOL/L (3.5-5.1); SODIUM 136 MMOL/L (135-145); TOTAL PROTEIN 4.9 G/DL (6.4-8.2); eCRCL 49 ML/MIN; eGFR 73 ML/MIN
[2023-09-03 10:00] VITALS: BP 121/62; PULSE 93; RESP 11; TEMP 97.9; O2SAT 97
[2023-09-03] MEDS: K and/or MAG REPLACEMENT MC SCH ×2 (11:13→20:00)
[2023-09-03] MEDS: POTASSIUM BICARB 20meq eff tab 20 MEQ TABLET.EFF PO PRN ×3 (11:23→21:44)
[2023-09-03 11:53] LABS: MAGNESIUM 1.2 MG/DL (1.5-2.4); PHOSPHORUS 2.1 MG/DL (2.3-4.5)
[2023-09-03] MEDS: magnesium Cl slow-release 64mg tablet PO PRN ×2 (15:38→21:44)
[2023-09-03 18:00] VITALS: BP 103/63; PULSE 90; RESP 13; TEMP 98.3; O2SAT 92
[2023-09-03 20:00] VITALS: RESP 13; O2SAT 92
[2023-09-03] MEDS ORDERED: VANCOMYCIN LEVEL IV ONE (20:30)
[2023-09-03] MEDS: VANCOMYCIN 750MG IV in NS 250 ML IV SCH (21:33)
[2023-09-03 22:00] VITALS: BP 119/60; PULSE 96; RESP 15; TEMP 97.9; O2SAT 95
[2023-09-04] MEDS: HYDROmorphone inj. 0.5 MG/0.5 ML DISP.SYRIN IV PRN ×2 (00:06→13:02)
[2023-09-04] MEDS: potassium cl 20mEq in 1/2 NS 1,000 ML IV SCH ×2 (05:26→19:57)
[2023-09-04 06:00] VITALS: BP 107/55; PULSE 93; RESP 16; TEMP 97.5; O2SAT 99
[2023-09-04] MEDS: lactose-reduced food (Ensure Enlive) - 237ml bottle PO SCH ×3 (08:00→18:11)
[2023-09-04] MEDS: K and/or MAG REPLACEMENT MC SCH ×3 (08:00→19:53)
[2023-09-04] MEDS: CefTRIAXone 2gm/D5W 50ml BAG 50 ML IV SCH (08:19)
[2023-09-04] MEDS: folic acid 1mg tablet PO SCH (08:20)
[2023-09-04] MEDS: multivitamins, therapeutics tablet PO SCH (08:20)
[2023-09-04] MEDS: thiamine 100mg tablet PO SCH (08:20)
[2023-09-04] MEDS: pantoprazole 40mg Tablet.DR PO SCH ×2 (08:20→19:57)
[2023-09-04] MEDS: metroNIDAZOLE 500mg tablet PO SCH ×2 (08:20→19:57)
[2023-09-04 09:38] LABS: BASOPHILS # (AUTO) 0.1 X10'3 (0-0.2); BASOPHILS % (AUTO) 0.5 % (0-1); EOSINOPHILS # (AUTO) 0.1 X10'3 (0-0.9); EOSINOPHILS % (AUTO) 0.4 % (0-6); HEMOGLOBIN 9.1 g/dl (12.0-16.0); LYMPHOCYTES # (AUTO) 0.9 X10'3 (1.1-4.8); LYMPHOCYTES % (AUTO) 7.1 % (21-51); MEAN CORPUSCULAR HGB CONC 32.5 g/dL (33.0-36.5); MEAN CORPUSCULAR VOLUME 95.2 FL (78-98); MEAN PLATELET VOLUME 8.4 FL (7.4-10.4); MONOCYTES # (AUTO) 0.7 X10'3 (0-0.9); MONOCYTES % (AUTO) 5.3 % (2-12); NEUTROPHILS # (AUTO) 11.1 X10'3 (1.8-7.7); NEUTROPHILS % (AUTO) 86.7 % (42-75); PLATELET COUNT 320 X10'3 (140-440); RED BLOOD COUNT 2.94 X10'6 (4.20-5.60); WHITE BLOOD COUNT 12.8 X10'3 (4.5-11.0)
[2023-09-04 09:53] LABS: ALANINE AMINOTRANSFERASE 8 U/L (12-78); ALBUMIN 1.1 G/DL (3.4-5.0); ALBUMIN/GLOBULIN RATIO 0.3 (1.1-1.5); ALKALINE PHOSPHATASE 72 IU/L (46-116); ANION GAP 4 (8-16); ASPARTATE AMINO TRANSFERASE 15 U/L (10-37); BILIRUBIN,TOTAL 0.3 MG/DL (0.1-1.0); BLOOD UREA NITROGEN 6 MG/DL (7-18); BUN/CREATININE RATIO 7.5 (10.0-20.0); CALCIUM 7.1 MG/DL (8.5-10.1); CHLORIDE 105 MMOL/L (99-107); GLUCOSE 107 MG/DL (70-104); POTASSIUM 4.1 MMOL/L (3.5-5.1); SODIUM 134 MMOL/L (135-145); TOTAL CARBON DIOXIDE 24.9 MMOL/L (24-32); eCRCL 47 ML/MIN; eGFR 70 ML/MIN
[2023-09-04 11:00] VITALS: BP 115/58; PULSE 68; RESP 16; TEMP 98; O2SAT 96
[2023-09-04 12:29] LABS: MAGNESIUM 1.1 MG/DL (1.5-2.4)
[2023-09-04] MEDS ORDERED: magnesium 4gm in 100ml NS 100 ML IV PRN (14:25)
[2023-09-04] MEDS ORDERED: magnesium 2GM in 50ml NS 50 ML IV PRN (14:25)
[2023-09-04] MEDS ORDERED: potassium Cl 20 mEq SR tablet PO PRN ×2 (14:25)
[2023-09-04] MEDS ORDERED: potassium Cl 40MEQ/1/2NS 520ml 520 ML IV PRN (14:25)
[2023-09-04] MEDS: magnesium Cl slow-release 64mg tablet PO PRN (17:20)
[2023-09-04 18:00] VITALS: BP 112/53; PULSE 92; RESP 16; TEMP 98.3; O2SAT 95
[2023-09-04 20:00] VITALS: RESP 16; O2SAT 95
[2023-09-04 22:00] VITALS: BP 115/55; PULSE 90; RESP 14; TEMP 98.5; O2SAT 96
[2023-09-04] MEDS: VANCOMYCIN 750MG IV in NS 250 ML IV SCH (22:02)
[2023-09-04] MEDS: latanoprost 0.005% 2.5ml ophthalmic drops EACHEYE SCH (22:02)
[2023-09-05] MEDS: HYDROmorphone inj. 0.5 MG/0.5 ML DISP.SYRIN IV PRN ×2 (00:07→11:22)
[2023-09-05] MEDS: magnesium Cl slow-release 64mg tablet PO PRN (02:51)
[2023-09-05 06:22] VITALS: BP 119/65; PULSE 93; RESP 15; TEMP 98.3; O2SAT 95
[2023-09-05 06:39] LABS: MAGNESIUM 1.1 MG/DL (1.5-2.4); POTASSIUM 3.8 MMOL/L (3.5-5.1)
[2023-09-05] MEDS: lactose-reduced food (Ensure Enlive) - 237ml bottle PO SCH ×2 (08:00→18:00)
[2023-09-05] MEDS: multivitamins, therapeutics tablet PO SCH (09:10)
[2023-09-05] MEDS: ascorbic acid 500mg tablet PO SCH (09:10)
[2023-09-05] MEDS: aspirin 81mg tab.chew PO SCH (09:10)
[2023-09-05] MEDS: buPROPion 75mg tablet PO SCH (09:10)
[2023-09-05] MEDS: pantoprazole 40mg Tablet.DR PO SCH ×2 (09:10→20:13)
[2023-09-05] MEDS: ESCITALOPRAM 10 mg tablet 10 MG TABLET PO SCH (09:10)
[2023-09-05] MEDS: metroNIDAZOLE 500mg tablet PO SCH (09:10)
[2023-09-05] MEDS: thiamine 100mg tablet PO SCH (09:10)
[2023-09-05] MEDS: ferrous sulfate 325mg tablet PO SCH (09:11)
[2023-09-05] MEDS: folic acid 1mg tablet PO SCH (09:11)
[2023-09-05 09:35] LABS: BASOPHILS % (AUTO) 0.4 % (0-1); EOSINOPHILS # (AUTO) 0.1 X10'3 (0-0.9); EOSINOPHILS % (AUTO) 0.7 % (0-6); HEMATOCRIT 28.1 % (35.0-45.0); HEMOGLOBIN 9.3 g/dl (12.0-16.0); LYMPHOCYTES # (AUTO) 0.8 X10'3 (1.1-4.8); LYMPHOCYTES % (AUTO) 8.8 % (21-51); MEAN CORPUSCULAR HEMOGLOBIN 31.6 PG (27.0-31.0); MEAN CORPUSCULAR HGB CONC 33.2 g/dL (33.0-36.5); MEAN CORPUSCULAR VOLUME 95.1 FL (78-98); MEAN PLATELET VOLUME 8.3 FL (7.4-10.4); MONOCYTES # (AUTO) 0.6 X10'3 (0-0.9); MONOCYTES % (AUTO) 6.9 % (2-12); NEUTROPHILS # (AUTO) 7.8 X10'3 (1.8-7.7); NEUTROPHILS % (AUTO) 83.2 % (42-75); PLATELET COUNT 319 X10'3 (140-440); RED BLOOD COUNT 2.96 X10'6 (4.20-5.60); RED CELL DISTRIBUTION WIDTH 17.9 % (11.5-14.5); WHITE BLOOD COUNT 9.3 X10'3 (4.5-11.0)
[2023-09-05 09:45] LABS: ALBUMIN 1.1 G/DL (3.4-5.0); ANION GAP 6 (8-16); BLOOD UREA NITROGEN 7 MG/DL (7-18); BUN/CREATININE RATIO 8.8 (10.0-20.0); CALCIUM 7.4 MG/DL (8.5-10.1); CHLORIDE 104 MMOL/L (99-107); GLUCOSE 97 MG/DL (70-104); POTASSIUM 3.4 MMOL/L (3.5-5.1); SODIUM 134 MMOL/L (135-145); TOTAL CARBON DIOXIDE 24.1 MMOL/L (24-32); eCRCL 47 ML/MIN; eGFR 70 ML/MIN
[2023-09-05 10:00] VITALS: BP 129/66; PULSE 85; RESP 16; TEMP 97.6; O2SAT 96
[2023-09-05] MEDS: potassium cl 20mEq in 1/2 NS 1,000 ML IV SCH (12:39)
[2023-09-05] MEDS ORDERED: Potassium Cl inj 20 MEQ in normal saline 1000ml 990 ML IV SCH (16:45)
[2023-09-05 18:00] VITALS: BP 120/68; PULSE 103; RESP 16; TEMP 97.4; O2SAT 96
[2023-09-05] MEDS: K and/or MAG REPLACEMENT MC SCH ×2 (19:27→19:28)
[2023-09-05 20:00] VITALS: RESP 16; O2SAT 94
[2023-09-05] MEDS: latanoprost 0.005% 2.5ml ophthalmic drops EACHEYE SCH (20:13)
[2023-09-05] MEDS: loperamide 2mg capsule PO PRN (20:13)
[2023-09-05] MEDS: VANCOMYCIN 750MG IV in NS 250 ML IV SCH (20:13)
[2023-09-05] MEDS: potassium Cl 20mEq in NS 1,000 ML IV SCH (21:00)
[2023-09-05 22:00] VITALS: BP 142/76; PULSE 103; RESP 13; TEMP 98.9; O2SAT 94
[2023-09-06] MEDS: HYDROmorphone inj. 0.5 MG/0.5 ML DISP.SYRIN IV PRN ×3 (01:40→17:47)
[2023-09-06 06:00] VITALS: BP 129/75; PULSE 61; RESP 15; TEMP 97.6; O2SAT 95
[2023-09-06 07:25] LABS: BASOPHILS # (AUTO) 0.1 X10'3 (0-0.2); BASOPHILS % (AUTO) 0.8 % (0-1); EOSINOPHILS # (AUTO) 0.1 X10'3 (0-0.9); EOSINOPHILS % (AUTO) 1.4 % (0-6); HEMATOCRIT 24.7 % (35.0-45.0); HEMOGLOBIN 8.4 g/dl (12.0-16.0); LYMPHOCYTES # (AUTO) 0.8 X10'3 (1.1-4.8); MEAN CORPUSCULAR HEMOGLOBIN 32.4 PG (27.0-31.0); MEAN CORPUSCULAR VOLUME 95.3 FL (78-98); MEAN PLATELET VOLUME 8.1 FL (7.4-10.4); MONOCYTES # (AUTO) 0.8 X10'3 (0-0.9); MONOCYTES % (AUTO) 9.7 % (2-12); NEUTROPHILS # (AUTO) 6.2 X10'3 (1.8-7.7); NEUTROPHILS % (AUTO) 78.1 % (42-75); PLATELET COUNT 313 X10'3 (140-440); RED BLOOD COUNT 2.59 X10'6 (4.20-5.60); RED CELL DISTRIBUTION WIDTH 17.5 % (11.5-14.5)
[2023-09-06 07:35] LABS: ALBUMIN 1.1 G/DL (3.4-5.0); ANION GAP 5 (8-16); BLOOD UREA NITROGEN 7 MG/DL (7-18); BUN/CREATININE RATIO 9.6 (10.0-20.0); CALCIUM 7.2 MG/DL (8.5-10.1); CHLORIDE 106 MMOL/L (99-107); CREATININE 0.73 MG/DL (0.40-0.90); GLUCOSE 75 MG/DL (70-104); POTASSIUM 3.8 MMOL/L (3.5-5.1); SODIUM 135 MMOL/L (135-145); TOTAL CARBON DIOXIDE 23.6 MMOL/L (24-32); eCRCL 52 ML/MIN; eGFR 77 ML/MIN
[2023-09-06] MEDS: K and/or MAG REPLACEMENT MC SCH ×4 (08:00→21:19)
[2023-09-06] MEDS: lactose-reduced food (Ensure Enlive) - 237ml bottle PO SCH ×3 (08:00→18:00)
[2023-09-06] MEDS ORDERED: levoFLOXACIN 500mg tablet PO SCH (08:00)
[2023-09-06] MEDS: pantoprazole 40mg Tablet.DR PO SCH ×2 (08:00→21:20)
[2023-09-06 08:58] LABS: ANISOCYTOSIS 1+; PLATELET ESTIMATE NORMAL; SMUDGE CELLS 1+; TOTAL CELLS COUNTED 100
[2023-09-06 08:59] LABS: POIKILOCYTOSIS FEW
[2023-09-06] MEDS: folic acid 1mg tablet PO SCH (09:01)
[2023-09-06] MEDS: thiamine 100mg tablet PO SCH (09:01)
[2023-09-06] MEDS: ferrous sulfate 325mg tablet PO SCH (09:01)
[2023-09-06] MEDS: aspirin 81mg tab.chew PO SCH (09:04)
[2023-09-06] MEDS: ESCITALOPRAM 10 mg tablet 10 MG TABLET PO SCH (09:04)
[2023-09-06] MEDS: multivitamins, therapeutics tablet PO SCH (09:04)
[2023-09-06] MEDS: ascorbic acid 500mg tablet PO SCH (09:04)
[2023-09-06] MEDS: buPROPion 75mg tablet PO SCH (09:04)
[2023-09-06] MEDS: potassium Cl 20mEq in NS 1,000 ML IV SCH ×2 (10:20→21:18)
[2023-09-06 18:00] VITALS: BP 134/69; PULSE 73; RESP 14; TEMP 97.7; O2SAT 96
[2023-09-06] MEDS: VANCOMYCIN 750MG IV in NS 250 ML IV SCH (21:18)
[2023-09-06] MEDS: acetaminophen 325mg tablet PO PRN (21:19)
[2023-09-06] MEDS: latanoprost 0.005% 2.5ml ophthalmic drops EACHEYE SCH (21:19)
[2023-09-06] MEDS: magnesium Cl slow-release 64mg tablet PO PRN (21:46)
[2023-09-06 22:00] VITALS: BP 128/66; PULSE 93; RESP 20; TEMP 98.1; O2SAT 96
[2023-09-07] VITALS (7 sets, daily range): BP systolic 121–135; BP diastolic 62–83; PULSE 90–111; RESP 14–18; TEMP 97.3–97.6; O2SAT 96–97
[2023-09-07] MEDS: HYDROmorphone inj. 0.5 MG/0.5 ML DISP.SYRIN IV PRN ×2 (00:03→15:32)
[2023-09-07] MEDS: K and/or MAG REPLACEMENT MC SCH ×4 (08:00→20:00)
[2023-09-07] MEDS ORDERED: levoFLOXACIN 250mg tablet PO SCH (08:00)
[2023-09-07] MEDS: folic acid 1mg tablet PO SCH (08:08)
[2023-09-07] MEDS: buPROPion 75mg tablet PO SCH (08:08)
[2023-09-07] MEDS: ESCITALOPRAM 10 mg tablet 10 MG TABLET PO SCH (08:09)
[2023-09-07] MEDS: ferrous sulfate 325mg tablet PO SCH (08:09)
[2023-09-07] MEDS: aspirin 81mg tab.chew PO SCH (08:09)
[2023-09-07] MEDS: pantoprazole 40mg Tablet.DR PO SCH ×2 (08:09→21:11)
[2023-09-07] MEDS: multivitamins, therapeutics tablet PO SCH (08:09)
[2023-09-07] MEDS: ascorbic acid 500mg tablet PO SCH (08:09)
[2023-09-07] MEDS: thiamine 100mg tablet PO SCH (08:10)
[2023-09-07] MEDS: lactose-reduced food (Ensure Enlive) - 237ml bottle PO SCH ×3 (08:20→18:03)
[2023-09-07] MEDS: potassium Cl 20mEq in NS 1,000 ML IV SCH (15:20)
[2023-09-07] MEDS: amox tr/potassium clavulanate 500mg/125mg TAB PO SCH (17:39)
[2023-09-07] MEDS ORDERED: VANCOMYCIN 750MG IV in NS 250 ML IV SCH (21:00)
[2023-09-07] MEDS: latanoprost 0.005% 2.5ml ophthalmic drops EACHEYE SCH (21:12)
[2023-09-08] MEDS: potassium Cl 20mEq in NS 1,000 ML IV SCH ×2 (04:08→17:46)
[2023-09-08 06:00] VITALS: BP 141/84; PULSE 101; RESP 19; TEMP 96.8; O2SAT 95
[2023-09-08] MEDS: K and/or MAG REPLACEMENT MC SCH ×4 (08:00→20:00)
[2023-09-08] MEDS: pantoprazole 40mg Tablet.DR PO SCH ×2 (08:10→20:04)
[2023-09-08] MEDS: amox tr/potassium clavulanate 500mg/125mg TAB PO SCH (08:10)
[2023-09-08] MEDS: ascorbic acid 500mg tablet PO SCH (08:10)
[2023-09-08] MEDS: multivitamins, therapeutics tablet PO SCH (08:10)
[2023-09-08] MEDS: thiamine 100mg tablet PO SCH (08:10)
[2023-09-08] MEDS: aspirin 81mg tab.chew PO SCH (08:11)
[2023-09-08] MEDS: ferrous sulfate 325mg tablet PO SCH (08:11)
[2023-09-08] MEDS: ESCITALOPRAM 10 mg tablet 10 MG TABLET PO SCH (08:11)
[2023-09-08] MEDS: buPROPion 75mg tablet PO SCH (08:11)
[2023-09-08] MEDS: folic acid 1mg tablet PO SCH (08:11)
[2023-09-08] MEDS: lactose-reduced food (Ensure Enlive) - 237ml bottle PO SCH ×3 (08:21→18:17)
[2023-09-08] MEDS: DOXYCYCLINE 100MG CAPSULE PO SCH ×2 (10:27→17:48)
[2023-09-08] MEDS: amox tr/potassium clavulanate 875/125mg TAB PO SCH ×2 (10:27→17:48)
[2023-09-08] MEDS: HYDROmorphone inj. 0.5 MG/0.5 ML DISP.SYRIN IV PRN (11:37)
[2023-09-08 18:00] VITALS: BP 134/71; PULSE 113; RESP 15; TEMP 98.1; O2SAT 95
[2023-09-08 20:00] VITALS: RESP 16; O2SAT 94
[2023-09-08] MEDS: latanoprost 0.005% 2.5ml ophthalmic drops EACHEYE SCH (20:04)
[2023-09-08 22:00] VITALS: BP 127/74; PULSE 69; RESP 16; TEMP 98.4; O2SAT 94
[2023-09-09] VITALS (7 sets, daily range): BP systolic 114–126; BP diastolic 66–69; PULSE 80–126; RESP 16–20; TEMP 97.6–98.2; O2SAT 93–96
[2023-09-09] MEDS: loperamide 2mg capsule PO PRN ×2 (00:03→09:02)
[2023-09-09] MEDS: potassium Cl 20mEq in NS 1,000 ML IV SCH ×2 (05:27→20:07)
[2023-09-09] MEDS: ferrous sulfate 325mg tablet PO SCH (08:00)
[2023-09-09] MEDS: folic acid 1mg tablet PO SCH (08:00)
[2023-09-09] MEDS: K and/or MAG REPLACEMENT MC SCH ×4 (08:00→20:00)
[2023-09-09] MEDS: lactose-reduced food (Ensure Enlive) - 237ml bottle PO SCH ×3 (08:00→18:03)
[2023-09-09] MEDS: amox tr/potassium clavulanate 875/125mg TAB PO SCH ×2 (09:02→17:49)
[2023-09-09] MEDS: buPROPion 75mg tablet PO SCH (09:02)
[2023-09-09] MEDS: DOXYCYCLINE 100MG CAPSULE PO SCH ×2 (09:03→17:49)
[2023-09-09] MEDS: pantoprazole 40mg Tablet.DR PO SCH ×2 (09:03→21:36)
[2023-09-09] MEDS: aspirin 81mg tab.chew PO SCH (09:03)
[2023-09-09] MEDS: thiamine 100mg tablet PO SCH (09:03)
[2023-09-09] MEDS: ascorbic acid 500mg tablet PO SCH (09:03)
[2023-09-09] MEDS: multivitamins, therapeutics tablet PO SCH (09:03)
[2023-09-09] MEDS: ESCITALOPRAM 10 mg tablet 10 MG TABLET PO SCH (09:04)
[2023-09-09] MEDS: HYDROmorphone inj. 0.5 MG/0.5 ML DISP.SYRIN IV PRN ×2 (14:00→21:00)
[2023-09-09] MEDS ORDERED: furosemide 20 MG/2 ML vial IV ONE (14:45)
[2023-09-09] MEDS: latanoprost 0.005% 2.5ml ophthalmic drops EACHEYE SCH (21:35)
[2023-09-10] MEDS: HYDROmorphone inj. 0.5 MG/0.5 ML DISP.SYRIN IV PRN (02:53)
[2023-09-10 06:00] VITALS: BP 92/49; PULSE 115; RESP 16; TEMP 97.8; O2SAT 96
[2023-09-10] MEDS: lactose-reduced food (Ensure Enlive) - 237ml bottle PO SCH ×3 (08:00→18:36)
[2023-09-10] MEDS: K and/or MAG REPLACEMENT MC SCH ×4 (08:00→19:00)
[2023-09-10 10:00] VITALS: BP 103/48; PULSE 117; RESP 16; TEMP 98; O2SAT 95
[2023-09-10] MEDS: amox tr/potassium clavulanate 875/125mg TAB PO SCH ×2 (13:02→17:54)
[2023-09-10] MEDS: aspirin 81mg tab.chew PO SCH (13:03)
[2023-09-10] MEDS: folic acid 1mg tablet PO SCH (13:03)
[2023-09-10] MEDS: pantoprazole 40mg Tablet.DR PO SCH ×2 (13:03→19:45)
[2023-09-10] MEDS: multivitamins, therapeutics tablet PO SCH (13:03)
[2023-09-10] MEDS: buPROPion 75mg tablet PO SCH (13:03)
[2023-09-10] MEDS: ascorbic acid 500mg tablet PO SCH (13:03)
[2023-09-10] MEDS: DOXYCYCLINE 100MG CAPSULE PO SCH ×2 (13:03→17:54)
[2023-09-10] MEDS: ESCITALOPRAM 10 mg tablet 10 MG TABLET PO SCH (13:03)
[2023-09-10] MEDS: ferrous sulfate 325mg tablet PO SCH (13:03)
[2023-09-10] MEDS: thiamine 100mg tablet PO SCH (13:05)
[2023-09-10] MEDS: potassium Cl 20mEq in NS 1,000 ML IV SCH (17:48)
[2023-09-10 18:00] VITALS: BP 116/61; PULSE 121; RESP 18; TEMP 99.2; O2SAT 97
[2023-09-10 20:00] VITALS: RESP 19; O2SAT 95
[2023-09-10] MEDS: latanoprost 0.005% 2.5ml ophthalmic drops EACHEYE SCH (21:08)
[2023-09-10 22:00] VITALS: BP 117/63; PULSE 120; RESP 14; TEMP 99.1; O2SAT 96
[2023-09-10] MEDS: LORazepam 2 mg/ml vial IV PRN (22:36)
[2023-09-10 22:50] VITALS: PULSE 103
[2023-09-11] MEDS: HYDROmorphone inj. 0.5 MG/0.5 ML DISP.SYRIN IV PRN ×2 (01:14→12:18)
[2023-09-11 07:13] VITALS: BP 131/73; PULSE 110; RESP 18; TEMP 98.3; O2SAT 94
[2023-09-11 08:00] VITALS: RESP 18; O2SAT 94
[2023-09-11] MEDS: thiamine 100mg tablet PO SCH (08:11)
[2023-09-11] MEDS: multivitamins, therapeutics tablet PO SCH (08:11)
[2023-09-11] MEDS: buPROPion 75mg tablet PO SCH (08:11)
[2023-09-11] MEDS: amox tr/potassium clavulanate 875/125mg TAB PO SCH ×2 (08:11→17:34)
[2023-09-11] MEDS: ESCITALOPRAM 10 mg tablet 10 MG TABLET PO SCH (08:11)
[2023-09-11] MEDS: aspirin 81mg tab.chew PO SCH (08:12)
[2023-09-11] MEDS: ascorbic acid 500mg tablet PO SCH (08:12)
[2023-09-11] MEDS: DOXYCYCLINE 100MG CAPSULE PO SCH ×2 (08:12→17:34)
[2023-09-11] MEDS: pantoprazole 40mg Tablet.DR PO SCH ×2 (08:12→20:37)
[2023-09-11] MEDS: folic acid 1mg tablet PO SCH (08:12)
[2023-09-11] MEDS: ferrous sulfate 325mg tablet PO SCH (08:12)
[2023-09-11 08:19] LABS: PHOSPHORUS 2.4 MG/DL (2.3-4.5); POTASSIUM 3.6 MMOL/L (3.5-5.1)
[2023-09-11] MEDS: lactose-reduced food (Ensure Enlive) - 237ml bottle PO SCH ×4 (08:20→18:03)
[2023-09-11 08:23] LABS: MAGNESIUM 0.9 MG/DL (1.5-2.4)
[2023-09-11] MEDS ORDERED: magnesium 4gm in 100ml NS 100 ML IV ONE (08:30)
[2023-09-11] MEDS ORDERED: magnesium 2GM in 50ml NS 50 ML IV PRN (08:30)
[2023-09-11] MEDS ORDERED: magnesium 4gm in 100ml NS 100 ML IV PRN (08:30)
[2023-09-11 11:40] VITALS: BP 114/60; PULSE 102; RESP 15; TEMP 98.3; O2SAT 94
[2023-09-11] MEDS: potassium Cl 20mEq in NS 1,000 ML IV SCH ×2 (12:06→17:28)
[2023-09-11] MEDS: loperamide 2mg capsule PO PRN (17:55)
[2023-09-11 18:30] VITALS: BP 117/66; PULSE 110; RESP 17; TEMP 97.9; O2SAT 96
[2023-09-11 18:40] VITALS: RESP 17; O2SAT 96
[2023-09-11] MEDS: K and/or MAG REPLACEMENT MC SCH (20:00)
[2023-09-11] MEDS: latanoprost 0.005% 2.5ml ophthalmic drops EACHEYE SCH (21:26)
[2023-09-11 22:00] VITALS: BP 123/62; PULSE 117; RESP 14; TEMP 99; O2SAT 95
[2023-09-12 06:34] VITALS: BP 115/64; PULSE 111; RESP 15; TEMP 98.5; O2SAT 95
[2023-09-12 07:00] VITALS: RESP 5; O2SAT 94
[2023-09-12] MEDS: ascorbic acid 500mg tablet PO SCH (07:37)
[2023-09-12] MEDS: thiamine 100mg tablet PO SCH (07:37)
[2023-09-12] MEDS: multivitamins, therapeutics tablet PO SCH (07:37)
[2023-09-12] MEDS: ferrous sulfate 325mg tablet PO SCH (07:37)
[2023-09-12] MEDS: DOXYCYCLINE 100MG CAPSULE PO SCH ×2 (07:37→17:22)
[2023-09-12] MEDS: ESCITALOPRAM 10 mg tablet 10 MG TABLET PO SCH (07:37)
[2023-09-12] MEDS: buPROPion 75mg tablet PO SCH (07:37)
[2023-09-12] MEDS: amox tr/potassium clavulanate 875/125mg TAB PO SCH ×2 (07:37→17:22)
[2023-09-12] MEDS: aspirin 81mg tab.chew PO SCH (07:37)
[2023-09-12] MEDS: pantoprazole 40mg Tablet.DR PO SCH ×2 (07:37→20:14)
[2023-09-12] MEDS: folic acid 1mg tablet PO SCH (07:37)
[2023-09-12] MEDS: lactose-reduced food (Ensure Enlive) - 237ml bottle PO SCH ×3 (08:00→18:54)
[2023-09-12] MEDS: K and/or MAG REPLACEMENT MC SCH ×2 (08:00→20:00)
[2023-09-12 08:39] LABS: BASOPHILS # (AUTO) 0.1 X10'3 (0-0.2); BASOPHILS % (AUTO) 1.1 % (0-1); EOSINOPHILS # (AUTO) 0.3 X10'3 (0-0.9); EOSINOPHILS % (AUTO) 4.3 % (0-6); HEMATOCRIT 24.2 % (35.0-45.0); HEMOGLOBIN 8.1 g/dl (12.0-16.0); LYMPHOCYTES # (AUTO) 1.1 X10'3 (1.1-4.8); LYMPHOCYTES % (AUTO) 15.8 % (21-51); MEAN CORPUSCULAR HEMOGLOBIN 32.1 PG (27.0-31.0); MEAN CORPUSCULAR HGB CONC 33.5 g/dL (33.0-36.5); MEAN CORPUSCULAR VOLUME 95.7 FL (78-98); MEAN PLATELET VOLUME 7.9 FL (7.4-10.4); MONOCYTES # (AUTO) 0.9 X10'3 (0-0.9); MONOCYTES % (AUTO) 12.8 % (2-12); NEUTROPHILS # (AUTO) 4.5 X10'3 (1.8-7.7); PLATELET COUNT 314 X10'3 (140-440); RED BLOOD COUNT 2.53 X10'6 (4.20-5.60); RED CELL DISTRIBUTION WIDTH 17.2 % (11.5-14.5); WHITE BLOOD COUNT 6.8 X10'3 (4.5-11.0)
[2023-09-12 09:13] LABS: ANISOCYTOSIS 1+; PLATELET ESTIMATE NORMAL; TOTAL CELLS COUNTED 100
[2023-09-12 09:14] LABS: SMUDGE CELLS FEW
[2023-09-12 09:17] LABS: ALANINE AMINOTRANSFERASE 8 U/L (12-78); ALBUMIN 1.2 G/DL (3.4-5.0); ALBUMIN/GLOBULIN RATIO 0.3 (1.1-1.5); ALKALINE PHOSPHATASE 90 IU/L (46-116); ANION GAP 7 (8-16); ASPARTATE AMINO TRANSFERASE 22 U/L (10-37); BILIRUBIN,TOTAL 0.2 MG/DL (0.1-1.0); BLOOD UREA NITROGEN 10 MG/DL (7-18); BUN/CREATININE RATIO 12.7 (10.0-20.0); CALCIUM 7.9 MG/DL (8.5-10.1); CHLORIDE 104 MMOL/L (99-107); CREATININE 0.79 MG/DL (0.40-0.90); GLUCOSE 78 MG/DL (70-104); MAGNESIUM 2.1 MG/DL (1.5-2.4); SODIUM 135 MMOL/L (135-145); TOTAL CARBON DIOXIDE 24.5 MMOL/L (24-32); TOTAL PROTEIN 5.7 G/DL (6.4-8.2); eCRCL 48 ML/MIN; eGFR 71 ML/MIN
[2023-09-12 10:00] VITALS: BP 106/54; PULSE 94; RESP 18; TEMP 98.2; O2SAT 94
[2023-09-12] MEDS: HYDROmorphone inj. 0.5 MG/0.5 ML DISP.SYRIN IV PRN (10:48)
[2023-09-12] MEDS: loperamide 2mg capsule PO PRN (10:52)
[2023-09-12] MEDS: potassium Cl 20mEq in NS 1,000 ML IV SCH (15:49)
[2023-09-12 18:00] VITALS: BP 109/65; PULSE 98; RESP 18; TEMP 98.5; O2SAT 98
[2023-09-12 20:00] VITALS: RESP 16; O2SAT 94
[2023-09-12] MEDS: latanoprost 0.005% 2.5ml ophthalmic drops EACHEYE SCH (20:14)
[2023-09-12] MEDS: psyllium seed 5.8 gm packet (sugar-free) PO SCH (20:14)
[2023-09-12 22:00] VITALS: BP 121/64; PULSE 117; RESP 14; TEMP 99.7; O2SAT 97
[2023-09-13] VITALS (7 sets, daily range): BP systolic 102–155; BP diastolic 53–76; PULSE 92–101; RESP 14–24; TEMP 97.5–98.6; O2SAT 93–97
[2023-09-13] MEDS: HYDROmorphone inj. 0.5 MG/0.5 ML DISP.SYRIN IV PRN (03:31)
[2023-09-13 06:31] LABS: BASOPHILS # (AUTO) 0.1 X10'3 (0-0.2); BASOPHILS % (AUTO) 1.2 % (0-1); EOSINOPHILS # (AUTO) 0.3 X10'3 (0-0.9); EOSINOPHILS % (AUTO) 4.2 % (0-6); HEMATOCRIT 24.2 % (35.0-45.0); HEMOGLOBIN 8.1 g/dl (12.0-16.0); LYMPHOCYTES # (AUTO) 1.3 X10'3 (1.1-4.8); LYMPHOCYTES % (AUTO) 16.5 % (21-51); MEAN CORPUSCULAR HEMOGLOBIN 32.1 PG (27.0-31.0); MEAN CORPUSCULAR HGB CONC 33.6 g/dL (33.0-36.5); MEAN CORPUSCULAR VOLUME 95.6 FL (78-98); MEAN PLATELET VOLUME 7.6 FL (7.4-10.4); MONOCYTES # (AUTO) 0.9 X10'3 (0-0.9); MONOCYTES % (AUTO) 11.1 % (2-12); NEUTROPHILS # (AUTO) 5.3 X10'3 (1.8-7.7); PLATELET COUNT 306 X10'3 (140-440); RED BLOOD COUNT 2.53 X10'6 (4.20-5.60); RED CELL DISTRIBUTION WIDTH 16.6 % (11.5-14.5)
[2023-09-13 06:50] LABS: ALANINE AMINOTRANSFERASE 10 U/L (12-78); ALBUMIN 1.3 G/DL (3.4-5.0); ALBUMIN/GLOBULIN RATIO 0.3 (1.1-1.5); ALKALINE PHOSPHATASE 91 IU/L (46-116); ANION GAP 5 (8-16); ASPARTATE AMINO TRANSFERASE 21 U/L (10-37); BILIRUBIN,TOTAL 0.2 MG/DL (0.1-1.0); BLOOD UREA NITROGEN 11 MG/DL (7-18); BUN/CREATININE RATIO 14.7 (10.0-20.0); CALCIUM 7.6 MG/DL (8.5-10.1); CHLORIDE 104 MMOL/L (99-107); CREATININE 0.75 MG/DL (0.40-0.90); GLUCOSE 81 MG/DL (70-104); MAGNESIUM 1.4 MG/DL (1.5-2.4); POTASSIUM 3.9 MMOL/L (3.5-5.1); SODIUM 134 MMOL/L (135-145); TOTAL PROTEIN 5.8 G/DL (6.4-8.2); eCRCL 51 ML/MIN; eGFR 75 ML/MIN
[2023-09-13] MEDS ORDERED: potassium Cl 20 mEq SR tablet PO PRN ×2 (07:20)
[2023-09-13] MEDS ORDERED: magnesium 4gm in 100ml NS 100 ML IV PRN (07:20)
[2023-09-13] MEDS ORDERED: potassium Cl 40MEQ/1/2NS 520ml 520 ML IV PRN (07:20)
[2023-09-13] MEDS ORDERED: magnesium 2GM in 50ml NS 50 ML IV PRN (07:20)
[2023-09-13] MEDS: folic acid 1mg tablet PO SCH (08:00)
[2023-09-13] MEDS: ascorbic acid 500mg tablet PO SCH (08:00)
[2023-09-13] MEDS: pantoprazole 40mg Tablet.DR PO SCH ×2 (08:00→20:33)
[2023-09-13] MEDS: ESCITALOPRAM 10 mg tablet 10 MG TABLET PO SCH (08:00)
[2023-09-13] MEDS: aspirin 81mg tab.chew PO SCH (08:00)
[2023-09-13] MEDS: ferrous sulfate 325mg tablet PO SCH (08:00)
[2023-09-13] MEDS: thiamine 100mg tablet PO SCH (08:00)
[2023-09-13] MEDS: K and/or MAG REPLACEMENT MC SCH ×4 (08:00→20:32)
[2023-09-13] MEDS: multivitamins, therapeutics tablet PO SCH (08:00)
[2023-09-13] MEDS: magnesium Cl slow-release 64mg tablet PO PRN ×2 (08:00→20:32)
[2023-09-13] MEDS: lactose-reduced food (Ensure Enlive) - 237ml bottle PO SCH ×3 (08:00→17:29)
[2023-09-13] MEDS: buPROPion 75mg tablet PO SCH (08:00)
[2023-09-13] MEDS ORDERED: loperamide 2mg capsule PO SCH (08:00)
[2023-09-13] MEDS: latanoprost 0.005% 2.5ml ophthalmic drops EACHEYE SCH (20:33)
[2023-09-13] MEDS: loperamide 2mg capsule PO SCH (20:33)
[2023-09-13] MEDS: psyllium seed 5.8 gm packet (sugar-free) PO SCH (20:34)
[2023-09-14] MEDS: potassium Cl 20mEq in NS 1,000 ML IV SCH ×2 (00:06→05:58)
[2023-09-14] MEDS: HYDROmorphone inj. 0.5 MG/0.5 ML DISP.SYRIN IV PRN ×3 (00:47→20:18)
[2023-09-14 07:22] LABS: BASOPHILS # (AUTO) 0.1 X10'3 (0-0.2); BASOPHILS % (AUTO) 0.8 % (0-1); EOSINOPHILS # (AUTO) 0.3 X10'3 (0-0.9); EOSINOPHILS % (AUTO) 3.8 % (0-6); HEMATOCRIT 23.6 % (35.0-45.0); HEMOGLOBIN 7.9 g/dl (12.0-16.0); LYMPHOCYTES # (AUTO) 1.6 X10'3 (1.1-4.8); LYMPHOCYTES % (AUTO) 20.4 % (21-51); MEAN CORPUSCULAR HEMOGLOBIN 32.4 PG (27.0-31.0); MEAN CORPUSCULAR HGB CONC 33.5 g/dL (33.0-36.5); MEAN CORPUSCULAR VOLUME 96.8 FL (78-98); NEUTROPHILS # (AUTO) 4.7 X10'3 (1.8-7.7); PLATELET COUNT 307 X10'3 (140-440); RED BLOOD COUNT 2.44 X10'6 (4.20-5.60); RED CELL DISTRIBUTION WIDTH 16.7 % (11.5-14.5); WHITE BLOOD COUNT 7.6 X10'3 (4.5-11.0)
[2023-09-14 07:54] LABS: ALANINE AMINOTRANSFERASE 6 U/L (12-78); ALBUMIN 1.4 G/DL (3.4-5.0); ALBUMIN/GLOBULIN RATIO 0.3 (1.1-1.5); ALKALINE PHOSPHATASE 95 IU/L (46-116); ANION GAP 5 (8-16); ASPARTATE AMINO TRANSFERASE 19 U/L (10-37); BILIRUBIN,TOTAL 0.3 MG/DL (0.1-1.0); BLOOD UREA NITROGEN 10 MG/DL (7-18); BUN/CREATININE RATIO 12.8 (10.0-20.0); CALCIUM 8.1 MG/DL (8.5-10.1); CHLORIDE 103 MMOL/L (99-107); CREATININE 0.78 MG/DL (0.40-0.90); GLUCOSE 67 MG/DL (70-104); MAGNESIUM 1.3 MG/DL (1.5-2.4); POTASSIUM 4.1 MMOL/L (3.5-5.1); SODIUM 132 MMOL/L (135-145); TOTAL CARBON DIOXIDE 24.2 MMOL/L (24-32); TOTAL PROTEIN 6.1 G/DL (6.4-8.2); eCRCL 49 ML/MIN; eGFR 72 ML/MIN
[2023-09-14] MEDS: K and/or MAG REPLACEMENT MC SCH ×4 (08:00→19:21)
[2023-09-14] MEDS: buPROPion 75mg tablet PO SCH (08:00)
[2023-09-14] MEDS: lactose-reduced food (Ensure Enlive) - 237ml bottle PO SCH ×3 (08:00→18:01)
[2023-09-14 09:01] LABS: ANISOCYTOSIS 1+; PLATELET ESTIMATE NORMAL; TOTAL CELLS COUNTED 100
[2023-09-14 09:03] LABS: POIKILOCYTOSIS 1+
[2023-09-14] MEDS: folic acid 1mg tablet PO SCH (10:24)
[2023-09-14] MEDS: loperamide 2mg capsule PO SCH ×2 (10:24→20:18)
[2023-09-14] MEDS: ascorbic acid 500mg tablet PO SCH (10:24)
[2023-09-14] MEDS: ESCITALOPRAM 10 mg tablet 10 MG TABLET PO SCH (10:24)
[2023-09-14] MEDS: thiamine 100mg tablet PO SCH (10:24)
[2023-09-14] MEDS: ferrous sulfate 325mg tablet PO SCH (10:24)
[2023-09-14] MEDS: aspirin 81mg tab.chew PO SCH (10:25)
[2023-09-14] MEDS: multivitamins, therapeutics tablet PO SCH (10:25)
[2023-09-14] MEDS: pantoprazole 40mg Tablet.DR PO SCH ×2 (10:25→20:18)
[2023-09-14 18:00] VITALS: BP 116/50; PULSE 98; RESP 14; TEMP 98.6; O2SAT 96
[2023-09-14 20:00] VITALS: RESP 14; O2SAT 98
[2023-09-14] MEDS: psyllium seed 5.8 gm packet (sugar-free) PO SCH (20:18)
[2023-09-14] MEDS: latanoprost 0.005% 2.5ml ophthalmic drops EACHEYE SCH (20:20)
[2023-09-14 22:00] VITALS: BP 124/70; PULSE 101; RESP 14; TEMP 97.9; O2SAT 94
[2023-09-15] MEDS: potassium Cl 20mEq in NS 1,000 ML IV SCH (04:05)
[2023-09-15 06:45] LABS: BASOPHILS # (AUTO) 0.1 X10'3 (0-0.2); BASOPHILS % (AUTO) 0.9 % (0-1); EOSINOPHILS # (AUTO) 0.3 X10'3 (0-0.9); EOSINOPHILS % (AUTO) 3.1 % (0-6); HEMATOCRIT 23.4 % (35.0-45.0); HEMOGLOBIN 7.8 g/dl (12.0-16.0); LYMPHOCYTES # (AUTO) 1.2 X10'3 (1.1-4.8); LYMPHOCYTES % (AUTO) 14.2 % (21-51); MEAN CORPUSCULAR HEMOGLOBIN 31.7 PG (27.0-31.0); MEAN CORPUSCULAR HGB CONC 33.4 g/dL (33.0-36.5); MEAN CORPUSCULAR VOLUME 94.9 FL (78-98); MEAN PLATELET VOLUME 7.4 FL (7.4-10.4); MONOCYTES % (AUTO) 11.6 % (2-12); NEUTROPHILS % (AUTO) 70.2 % (42-75); PLATELET COUNT 294 X10'3 (140-440); RED BLOOD COUNT 2.46 X10'6 (4.20-5.60); RED CELL DISTRIBUTION WIDTH 16.4 % (11.5-14.5); WHITE BLOOD COUNT 8.5 X10'3 (4.5-11.0)
[2023-09-15 07:05] LABS: ALANINE AMINOTRANSFERASE 13 U/L (12-78); ALBUMIN 1.3 G/DL (3.4-5.0); ALBUMIN/GLOBULIN RATIO 0.3 (1.1-1.5); ALKALINE PHOSPHATASE 88 IU/L (46-116); ANION GAP 5 (8-16); ASPARTATE AMINO TRANSFERASE 21 U/L (10-37); BILIRUBIN,TOTAL 0.1 MG/DL (0.1-1.0); BLOOD UREA NITROGEN 9 MG/DL (7-18); CHLORIDE 104 MMOL/L (99-107); CREATININE 0.75 MG/DL (0.40-0.90); GLUCOSE 80 MG/DL (70-104); MAGNESIUM 1.2 MG/DL (1.5-2.4); SODIUM 133 MMOL/L (135-145); TOTAL CARBON DIOXIDE 24.1 MMOL/L (24-32); TOTAL PROTEIN 5.7 G/DL (6.4-8.2); eCRCL 51 ML/MIN; eGFR 75 ML/MIN
[2023-09-15] MEDS: ascorbic acid 500mg tablet PO SCH (09:14)
[2023-09-15] MEDS: loperamide 2mg capsule PO SCH (09:14)
[2023-09-15] MEDS: buPROPion 75mg tablet PO SCH (09:15)
[2023-09-15] MEDS: multivitamins, therapeutics tablet PO SCH (09:15)
[2023-09-15] MEDS: thiamine 100mg tablet PO SCH (09:15)
[2023-09-15] MEDS: pantoprazole 40mg Tablet.DR PO SCH (09:15)
[2023-09-15] MEDS: ESCITALOPRAM 10 mg tablet 10 MG TABLET PO SCH (09:15)
[2023-09-15] MEDS: ferrous sulfate 325mg tablet PO SCH (09:15)
[2023-09-15] MEDS: folic acid 1mg tablet PO SCH (09:15)
[2023-09-15] MEDS: aspirin 81mg tab.chew PO SCH (09:15)
[2023-09-15] MEDS: HYDROmorphone inj. 0.5 MG/0.5 ML DISP.SYRIN IV PRN (10:18)
[2023-09-15 11:47] LABS: TOTAL CELLS COUNTED 100
[2023-09-15 11:50] LABS: ANISOCYTOSIS 1+; PLATELET ESTIMATE NORMAL
== END 2023-09-15 13:15 | DRG 853 ==
LOC: ER 20:35 → ED HOLD 08-25 02:38 → EDBEDREQ 08-25 04:38 → ORTHO 4S 08-25 06:50
PROVIDERS: ADMIT Internal Medicine; ATTEND Family Medicine
PROC: 0DB68ZX Excision of Stomach, Via Natural or Artificial Opening Endoscopic, Diagnostic (ICD-10-PCS; 2023-08-27)
PROC: 30233N1 Transfusion of Nonautologous Red Blood Cells into Peripheral Vein, Percutaneous Approach (ICD-10-PCS; 2023-08-27)
PROC: 0W3P8ZZ Control Bleeding in Gastrointestinal Tract, Via Natural or Artificial Opening Endoscopic (ICD-10-PCS; 2023-08-27)
PROC: 0JB90ZZ Excision of Buttock Subcutaneous Tissue and Fascia, Open Approach (ICD-10-PCS; principal; 2023-08-31 17:28)
PROC: 05HC33Z Insertion of Infusion Device into Left Basilic Vein, Percutaneous Approach (ICD-10-PCS; 2023-09-04)
DX: A41.9 Sepsis, unspecified organism (principal); E43 Unspecified severe protein-calorie malnutrition; L89.154 Pressure ulcer of sacral region, stage 4; G93.41 Metabolic encephalopathy; J69.0 Pneumonitis due to inhalation of food and vomit; N17.0 Acute kidney failure with tubular necrosis; Z68.1 Body mass index [BMI] 19.9 or less, adult; N39.0 Urinary tract infection, site not specified; K56.7 Ileus, unspecified; J44.0 Chronic obstructive pulmonary disease with (acute) lower respiratory infection; L03.317 Cellulitis of buttock; Z66 Do not resuscitate; N18.9 Chronic kidney disease, unspecified; F03.90 Unspecified dementia, unspecified severity, without behavioral disturbance, psychotic disturbance, mood disturbance, and anxiety; I50.9 Heart failure, unspecified; K25.9 Gastric ulcer, unspecified as acute or chronic, without hemorrhage or perforation; R62.7 Adult failure to thrive; G62.9 Polyneuropathy, unspecified; E87.6 Hypokalemia; K11.20 Sialoadenitis, unspecified; F32.A Depression, unspecified; F10.20 Alcohol dependence, uncomplicated; E83.42 Hypomagnesemia; L89.309 Pressure ulcer of unspecified buttock, unspecified stage; D53.9 Nutritional anemia, unspecified; B96.4 Proteus (mirabilis) (morganii) as the cause of diseases classified elsewhere; K11.1 Hypertrophy of salivary gland; Z86.73 Personal history of transient ischemic attack (TIA), and cerebral infarction without residual deficits; Z79.82 Long term (current) use of aspirin; Z79.899 Other long term (current) drug therapy; Z87.11 Personal history of peptic ulcer disease; Z82.49 Family history of ischemic heart disease and other diseases of the circulatory system; Z87.891 Personal history of nicotine dependence
CPT/HCPCS: 36410; 36415; 36430; 43227; 43239; 43243; 43255; 70450; 70490; 71045; 74176; 76937; 80048; 80053; 80076; 80202; 81001; 82140; 82272; 82948; 83605; 83690; 83735; 84100; 84132; 84145; 85007; 85025; 85027; 85610; 86885; 86900; 86901; 86920; 87040; 87070; 87075; 87077; 87081; 87088; 87186; 87324; 87449; 88305; 88342; 92508; 92616; 93005; 97110; 97161; 97530; 97535; 99152; 99153; 99285; A4371; A4615; A4618; A4620; A4649; A5200; A6212; A6213; A6222; A6223; A6243; A6250; A6253; A6258; A6260; A6402; A6446; A6449; A7000; C1751; C1758; C9113; G0378; J0171; J0692; J0696; J1170; J1644; J1940; J2060; J2250; J2405; J2704; J3010; J3370; J3411; J3475; J3480; J3490; J7030; J7040; J7050; J7120; P9016

== ENCOUNTER 2023-09-27 01:49 | Inpatient (IN) | payer MEDICARE ==
[2023-09-27] VITALS (8 sets, daily range): BP systolic 83–112; BP diastolic 51–71; PULSE 99–130; RESP 16–22; TEMP 90.4–98.2; O2SAT 95–100
[~2023-09-27] VITALS: Ht 175.3 cm; Wt 47.0 kg
[~2023-09-27 01:49] MED LIST changes: -METO-395 PO; -ONDA-103 PO; -THIA100T70 PO; -ZALE5CAP2 PO
[2023-09-27 02:29] LABS: BILIRUBIN,URINE NEGATIVE (Neg); CLARITY,URINE CLOUDY (Clear); COLOR,URINE YELLOW (Yellow); GLUCOSE, URINE NEGATIVE (Neg); KETONES,URINE NEGATIVE (Neg); LEUKOCYTE ESTERASE ,URINE LARGE (Neg); NITRITES, URINE NEGATIVE (Neg); OCCULT BLOOD,URINE TRACE-INTACT (Neg); PH,URINE 5.5 (4.8-8.0); PROTEIN,URINE TRACE mg/dl (Neg); UROBILINOGEN,URINE 0.2 E.U/dL (0.2-1.0)
[2023-09-27 02:36] LABS: UA COLLECTION TYPE FOLEY CATH
[2023-09-27 02:38] LABS: BASOPHILS % (AUTO) 0.2 % (0-1); EOSINOPHILS % (AUTO) 0 % (0-6); LYMPHOCYTES # (AUTO) 1.2 X10'3 (1.1-4.8); LYMPHOCYTES % (AUTO) 7.7 % (21-51); MEAN CORPUSCULAR HEMOGLOBIN 31.6 PG (27.0-31.0); MEAN CORPUSCULAR HGB CONC 32.5 g/dL (33.0-36.5); MEAN CORPUSCULAR VOLUME 97.3 FL (78-98); MEAN PLATELET VOLUME 8.2 FL (7.4-10.4); MONOCYTES # (AUTO) 0.7 X10'3 (0-0.9); MONOCYTES % (AUTO) 4.6 % (2-12); NEUTROPHILS # (AUTO) 14.1 X10'3 (1.8-7.7); NEUTROPHILS % (AUTO) 87.5 % (42-75); PLATELET COUNT 364 X10'3 (140-440); RED BLOOD COUNT 1.01 X10'6 (4.20-5.60); RED CELL DISTRIBUTION WIDTH 16.4 % (11.5-14.5); WHITE BLOOD COUNT 16.1 X10'3 (4.5-11.0)
[2023-09-27 02:38] LABS: MUCUS STRANDS NONE SEEN /LPF (Neg); SQUAMOUS EPITHELIAL CELL,UR FEW /LPF (FEW); TRANSITIONAL EPI CELLS,URINE FEW /HPF; WBC,URINE TNTC /HPF (0-4)
[2023-09-27 02:39] LABS: CAL OXALATE CRYSTALS 4+ /HPF (NEGATIVE)
[2023-09-27 02:41] LABS: BACTERIA,URINE 4+ /HPF (Neg)
[2023-09-27 02:42] LABS: YEAST MANY /HPF (NEGATIVE)
[2023-09-27 02:46] LABS: HEMATOCRIT 9.8 % (35.0-45.0); HEMOGLOBIN 3.2 g/dl (12.0-16.0)
[2023-09-27 03:02] LABS: ALANINE AMINOTRANSFERASE 29 U/L (12-78); ALBUMIN 1.7 G/DL (3.4-5.0); ALBUMIN/GLOBULIN RATIO 0.4 (1.1-1.5); ALKALINE PHOSPHATASE 181 IU/L (46-116); ANION GAP 15 (8-16); ASPARTATE AMINO TRANSFERASE 28 U/L (10-37); BILIRUBIN,TOTAL 0.2 MG/DL (0.1-1.0); BLOOD UREA NITROGEN 85 MG/DL (7-18); BUN/CREATININE RATIO 40.3 (10.0-20.0); CALCIUM 8.4 MG/DL (8.5-10.1); CHLORIDE 98 MMOL/L (99-107); CREATININE 2.11 MG/DL (0.40-0.90); GLUCOSE 188 MG/DL (70-104); LIPASE 97 U/L (16-77); MAGNESIUM 1.5 MG/DL (1.5-2.4); POTASSIUM 4.1 MMOL/L (3.5-5.1); SODIUM 132 MMOL/L (135-145); TOTAL CARBON DIOXIDE 18.9 MMOL/L (24-32); TOTAL PROTEIN 5.6 G/DL (6.4-8.2); eCRCL 17 ML/MIN; eGFR 23 ML/MIN
[2023-09-27] MEDS ORDERED: normal saline 1000ML IV soln IVB ONE ×2 (03:05)
[2023-09-27] MEDS ORDERED: piperacillin/tazo 3.375gm/50ml 50 ML IV ONE (03:10)
[2023-09-27] MEDS ORDERED: pantoprazole 40MG/NS 100ML BAG 100 ML IV ONE (03:25)
[2023-09-27] MEDS ORDERED: pantoprazole 40 MG vial IV ONE (03:25)
[2023-09-27] MEDS ORDERED: acetaminophen 325mg tablet PO PRN (04:35)
[2023-09-27] MEDS ORDERED: potassium Cl 40MEQ/1/2NS 520ml 520 ML IV PRN (04:35)
[2023-09-27] MEDS ORDERED: magnesium 4gm in 100ml NS 100 ML IV PRN (04:35)
[2023-09-27] MEDS ORDERED: ondansetron/PF 4mg/2ml inj IV PRN (04:35)
[2023-09-27] MEDS ORDERED: magnesium 2GM in 50ml NS 50 ML IV PRN (04:35)
[2023-09-27] MEDS ORDERED: morphine 2 MG/ML inj. syringe IV PRN (04:35)
[2023-09-27 05:01] LABS: PLATELET ESTIMATE NORMAL; TOTAL CELLS COUNTED 100
[2023-09-27 05:02] LABS: ANISOCYTOSIS 1+; POLYCHROMASIA FEW
[2023-09-27] MEDS: normal saline 1000ml 1,000 ML IV SCH ×3 (05:25→20:59)
[2023-09-27] MEDS: K and/or MAG REPLACEMENT MC SCH ×2 (08:00→20:00)
[2023-09-27] MEDS: piperacillin/tazo 3.375gm/50ml 50 ML IV SCH ×2 (08:03→20:58)
[2023-09-27 12:47] LABS: MEAN CORPUSCULAR HEMOGLOBIN 28.6 PG (27.0-31.0); MEAN CORPUSCULAR HGB CONC 31.5 g/dL (33.0-36.5); MEAN CORPUSCULAR VOLUME 90.7 FL (78-98); MEAN PLATELET VOLUME 9.1 FL (7.4-10.4); PLATELET COUNT 257 X10'3 (140-440); RED BLOOD COUNT 2.33 X10'6 (4.20-5.60); RED CELL DISTRIBUTION WIDTH 17.6 % (11.5-14.5); WHITE BLOOD COUNT 14.7 X10'3 (4.5-11.0)
[2023-09-27 12:50] LABS: HEMATOCRIT 21.2 % (35.0-45.0); HEMOGLOBIN 6.7 g/dl (12.0-16.0)
[2023-09-27] MEDS ORDERED: sucralfate 1 gm tablet PO SCH (14:15)
[2023-09-27] MEDS ORDERED: pantoprazole 40MG/NS 100ML BAG 100 ML IV SCH (20:00)
[2023-09-28] MEDS ORDERED: LORazepam 2 mg/ml vial IV PRN (07:55)
[2023-09-28] MEDS ORDERED: morphine 10mg/0.5ml (conc. morphine) oral syringe PO PRN (07:55)
[2023-09-28] MEDS ORDERED: morphine 10mg/ml inj. IV PRN (07:55)
[2023-09-28 11:14] VITALS: RESP 18
[2023-09-28 18:00] VITALS: BP 98/56; RESP 16; TEMP 98; O2SAT 93
[2023-09-28 22:00] VITALS: BP 99/54; RESP 16; TEMP 98.5; O2SAT 98
[2023-09-29 08:38] VITALS: RESP 18
== END 2023-09-29 16:30 | DRG 871 ==
LOC: ER 01:49 → ED HOLD 04:34 → ORTHO 4S 19:33
PROVIDERS: ADMIT Internal Medicine; ATTEND Internal Medicine
PROC: 30233N1 Transfusion of Nonautologous Red Blood Cells into Peripheral Vein, Percutaneous Approach (ICD-10-PCS; principal; 2023-09-27)
DX: A41.9 Sepsis, unspecified organism (principal); J12.82 Pneumonia due to coronavirus disease 2019; U07.1 COVID-19; K27.4 Chronic or unspecified peptic ulcer, site unspecified, with hemorrhage; R57.0 Cardiogenic shock; G93.40 Encephalopathy, unspecified; N17.9 Acute kidney failure, unspecified; E87.20 Acidosis, unspecified; N39.0 Urinary tract infection, site not specified; N18.4 Chronic kidney disease, stage 4 (severe); E87.1 Hypo-osmolality and hyponatremia; A04.72 Enterocolitis due to Clostridium difficile, not specified as recurrent; L89.309 Pressure ulcer of unspecified buttock, unspecified stage; F10.10 Alcohol abuse, uncomplicated; G62.9 Polyneuropathy, unspecified; I95.89 Other hypotension; E87.8 Other disorders of electrolyte and fluid balance, not elsewhere classified; E88.09 Other disorders of plasma-protein metabolism, not elsewhere classified; Z66 Do not resuscitate; Z51.5 Encounter for palliative care; Z79.82 Long term (current) use of aspirin; Z79.899 Other long term (current) drug therapy; Z80.0 Family history of malignant neoplasm of digestive organs
CPT/HCPCS: 36415; 36430; 71045; 80053; 81001; 83605; 83690; 83735; 84132; 84145; 84484; 85007; 85025; 85027; 86885; 86900; 86901; 86920; 87040; 87081; 87088; 87811; 96365; 96375; 99291; A6213; A6243; A6250; A6253; A6446; A6449; C1758; C9113; G0378; J2543; J7030; J7040; P9016